=== PATIENT | female | born 1990 | race Caucasian/White ===

== ENCOUNTER → 2018-06-07 09:09 | Outpatient (CLI) | payer OTHER, MEDICAID, SELFPAY ==
--- NOTE | 2018-06-07 09:10 | DI.US.S_ITS ---
PROCEDURE: US OB <= 14 WEEKS FETUS INDICATIONS: viability and dates OUTSIDE/PRIOR DATING DATA: Last menstrual period (LMP): 04/04/18. LMP-based estimated date of delivery (NADIA): 01/09/19. First dating scan (date and location): 06/07/18. Estimated date of delivery (NADIA) from first dating scan: 01/13/19. TECHNIQUE: Real-time scanning was performed of the fetus and maternal pelvic organs, with image documentation. Endovaginal scanning was also performed to better visualize the fetus and maternal ovaries. COMPARISON: None. FINDINGS: Embryo: 2.0 cm crown-rump length correlates with a gestational age of 8 weeks 4 days, plus or -5 days. heart rate is 185 beats per minute. Measurement variability in dating: +/- 4 weeks by LMP, +/- 7 days by mean sac diameter (use before 6 weeks gestation if crown-rump length not able to be measured), +/- 5 days by crown-rump length (up to 8 weeks 6 days gestation), +/- 7 days by crown-rump length (up to 13 weeks 6 days gestation). Maternal organs: Ovaries normal considering gestational status. Limited images through the kidneys demonstrate no hydronephrosis. IMPRESSION: Single living intrauterine gestation with delivery date projected to be centered on 01/13/19, plus or -5 days. Followup anatomic survey at approximately 21 weeks gestation is recommended. Dictated by: Anibal Corbett M.D. on 06/07/2018 at 11:01 Approved by: Anibal Corbett M.D. on 06/07/2018 at 11:03
[2018-06-07 10:22] LABS: Appearance Urine UA CLEAR; Bilirubin Urine UA NEGATIVE (NEGATIVE); Color Urine UA YELLOW; Glucose Urine UA NEGATIVE (Normal); Ketones Urine UA NEGATIVE (NEGATIVE); Leukocyte Esterase Urine UA NEGATIVE (NEGATIVE); Nitrite Urine UA Negative (Negative); Occult Blood Urine UA NEGATIVE (Negative); Protein Urine UA NEGATIVE (Negative); Specific Gravity Urine UA <=1.005 (1.000-1.035); Urobilinogen Urine UA 0.2 E.U./dL (0.2)
[2018-06-07 10:29] LABS: Add Manual Diff / Slide Review NO; Basophils Percent Auto 0.6 % (0-2); Eosinophils Percent Auto 9.3 % (2-4); Hematocrit 38.9 % (36-46); Hemoglobin 13.3 g/dL (12.0-16.0); Lymphocytes Percent Auto 22.9 % (25-40); Mean Corpuscular HGB Conc 34.1 % (30-36); Mean Corpuscular Hemoglobin 29.6 PG (26-34); Mean Corpuscular Volume 86.7 fL (80-100); Monocytes Percent Auto 8.5 % (3-14); Neutrophils Absolute Auto 4400 /uL (3000-5900); Neutrophils Percent Auto 58.7 % (50-75); Platelet Count 304 X10^3/uL (150-400); Red Blood Cell Count 4.49 X10^6/uL (4.0-5.2); White Blood Cell Count 7.5 X10^3/uL (4.5-11.0)
[2018-06-07 12:51] LABS: Hepatitis B Surface Antigen NEGATIVE s/c (NEGATIVE); Rubella Antibody IgG 15.4 IU/mL (>15)
[2018-06-07 13:32] LABS: HIV 1 and 2 Antibody NEGATIVE (NEGATIVE); Hep C Virus Ab w/Reflex Quant NEGATIVE s/c (NEGATIVE)
[2018-06-08 15:06] LABS: HSV 2 IGG AB < 0.90 index (< 0.90)
[2018-06-10 13:15] LABS: Rapid Plasma Reagin NON-REACTIVE
== END ==
PROVIDERS: PCP Family Medicine; Visit Provider Family Medicine
DX: Z34.81 Encounter for supervision of other normal pregnancy, first trimester (principal); Z3A.01 Less than 8 weeks gestation of pregnancy
CPT/HCPCS: 36415; 76801; 76817; 80055; 81003; 86695; 86696; 86703; 86787; 86803; 86850; 86900; 86901; 87086

== ENCOUNTER → 2018-08-03 16:09 | Outpatient (CLI) | payer OTHER, MEDICAID, SELFPAY ==
[2018-08-12 14:25] LABS: AFP, Serum 43.3 ng/mL; Calc Gestational Age 17.3; Cigarette Smoker N; Donated Egg NOT GIVEN; Donor Egg Age NOT GIVEN; Estriol, Free 0.92 ng/mL; Inhibin A, Dimeric 179 pg/mL; Maternal Weight 139 lbs; Number of Fetuses 1; Previous Pregnancy Down Syndro NOT GIVEN; hCG, MoM 1.23; hCG, Serum 34.5 IU/mL
== END ==
PROVIDERS: PCP Family Medicine; Visit Provider Family Medicine
DX: Z3A.17 17 weeks gestation of pregnancy (principal)
CPT/HCPCS: 36415; 82105; 82677; 84702; 86336

== ENCOUNTER → 2018-08-27 13:44 | Outpatient (CLI) | payer OTHER, MEDICAID, SELFPAY ==
--- NOTE | 2018-08-27 13:45 | DI.US.S_ITS ---
PROCEDURE: US OB >= 14 WEEKS FETUS INDICATIONS: anatomy screening OUTSIDE/PRIOR DATING DATA: Last menstrual period (LMP): 04/04/18. LMP-based estimated date of delivery (NADIA): 01/09/19. First dating scan (date and location): 06/07/18. Estimated date of delivery (NADIA) from first dating scan: 01/13/19.. TECHNIQUE: Real-time scanning was performed of the fetus, with image documentation and biometric measurements. Endovaginal scanning: No COMPARISON: [facility], OB <= 14 WEEKS FETUS, 06/07/2018, 9:40. FINDINGS: General: A single living intrauterine gestation is present. Presentation: Breech. Placenta: Placental position is anterior, without previa. Amniotic fluid index: 13.4 cm, normal range is 5-24 cm. heart rate: 153 beats per minute. Maternal cervical canal: 5.4 cm long. Normal lower limit is 2.5 cm. biometrics: Biparietal diameter: 20 weeks 3 days Head circumference: 20 weeks 2 days Abdominal circumference: 20 weeks 5 days Femur length: 20 weeks 1 Estimated gestational age from initial scan: 20 weeks 1 day Composite gestational age from present scan: 20 weeks 3 days Estimated weight and percentile: 52 g, 61st percentile Measurement variability for biometric dating: +/- 7 days from 14 weeks to 15 weeks 6 days gestation, +/- 10 days from 16 weeks to 21 weeks 6 days gestation, +/- 2 weeks from 22 weeks to 27 weeks 6 days gestation, +/- 3 weeks for 28 weeks gestation or later. weight reference: 4500 g or EFW >90/95% is considered macrosomia or large for gestational age. EFW <10% is small for gestational age. EFW 5% or less is considered intra-uterine growth restriction. Anatomic survey: Neuro: Ventricles are non-dilated at less than 10 mm. Cisterna magna is normal at 3-11 mm. Cerebellum is normal in size and morphology. Nuchal skin fold: Normal at less than 6 mm between 14-21 weeks gestational age. Face: Nose and lips, facial profile are normal. Spine: No evidence for spina bifida. Heart: 4-chambered heart is present, with normal ventricular outflow tracts. Left ventricular intracardiac focus. Diaphragm: Diaphragm is intact. Stomach: Left-sided stomach is present. Kidneys: No hydronephrosis. Normal is less than 5 mm in 2nd trimester, less than 7 mm in 3rd trimester. Cord: 3-vessel cord has orthotopic insertion. Bladder: Normal in size. Extremities: All 4 extremities identified. IMPRESSION: 1. Single living IUP be demonstrated an interval growth is normal. 2. Echogenic intracardiac focus: 1.4-1.8 fold likelihood of Down syndrome. If isolated finding, consider aneuploidy screening with cell-free DNA. If aneuploidy screen is negative, no further evaluation needed. Dictated by: Shon LLANES Interpreted: Jovany Vance MD on 08/27/2018 at 15:01 Approved by: Jovany Vance M.D. on 08/27/2018 at 16:37
== END ==
PROVIDERS: PCP Family Medicine; Visit Provider Family Medicine
DX: Z3A.20 20 weeks gestation of pregnancy (principal)
CPT/HCPCS: 76811

== ENCOUNTER → 2018-10-05 14:24 | Outpatient (CLI) | payer OTHER, MEDICAID, SELFPAY ==
[2018-10-05 16:19] LABS: Hematocrit 38.1 % (36-46); Hemoglobin 12.8 g/dL (12.0-16.0)
[2018-10-05 16:37] LABS: GTT (PREG) 1 Hour PP 50gm Dose 120 mg/dL (76-139)
[2018-10-05 16:51] LABS: Alanine Aminotransferase 29 IU/L (9-52); Albumin 4.1 g/dL (3.5-5.0); Albumin Globulin Ratio 1.4 (1.0-2.8); Alkaline Phosphatase 50 U/L (38-126); Aspartate Aminotransferase 19 IU/L (14-36); Bilirubin Total 0.2 mg/dL (0.2-1.3); Blood Urea Nitrogen 10 mg/dL (7-17); Calcium 9.6 mg/dL (8.4-10.2); Carbon Dioxide 23 mmol/L (22-32); Chloride 102 mmol/L (98-107); Estimated Glomerular Filt Rate > 60.0 mL/min (>60); Globulin 2.9 g/dL (1.7-4.1); Glucose 121 mg/dL (70-100); HEMOLYSIS < 15 (0-50); Potassium 3.8 mmol/L (3.4-5.1); Sodium 135 mmol/L (137-145)
== END ==
PROVIDERS: PCP Family Medicine; Visit Provider Family Medicine
DX: Z3A.26 26 weeks gestation of pregnancy (principal); L29.9 Pruritus, unspecified; O99.719 Diseases of the skin and subcutaneous tissue complicating pregnancy, unspecified trimester
CPT/HCPCS: 36415; 80053; 82239; 82950; 85014; 85018

== ENCOUNTER 2018-10-30 15:20 | Outpatient (CLI) | payer OTHER, MEDICAID, SELFPAY ==
[2018-10-30 16:01] LABS: Appearance Urine UA CLOUDY; Bilirubin Urine UA NEGATIVE (NEGATIVE); Color Urine UA YELLOW; Glucose Urine UA NEGATIVE (Negative); Ketones Urine UA NEGATIVE (NEGATIVE); Leukocyte Esterase Urine UA 1+ (NEGATIVE); Nitrite Urine UA NEGATIVE (Negative); Occult Blood Urine UA NEGATIVE (Negative); Protein Urine UA NEGATIVE (Negative); RBC Urine None Seen (0-5/HPF); Specific Gravity Urine UA 1.015 (1.000-1.035); Urobilinogen Urine UA 0.2 E.U./dL (0.2); pH Urine UA 6.5 (4.5-8.0)
[2018-10-30 16:18] LABS: Bacteria Urine Many (>30); Culture Indicated Urine Cult Not Indicated; Squamous Epithelial Cell Urine >30 /HPF; WBC Urine 5-10/HPF (0-5/HPF)
--- NOTE | 2018-10-30 18:41 | P.TNLD_ITS ---
Visit Information Visit Information Date of evaluation: 10/30/18 Primary OB Provider: Lucía Patton On-call OB Provider: Rosalie Fleming Reason for Evaluation: Yes non-stress test Vital Signs Vital Signs: BP 120/90, T 36.0, P 114 PFSH Social History Smoking Status: Former smoker Review of Systems Review of Systems C/O too frequent felisa banda, no leakage, lower abdominal pain All systems reviewed & are unremarkable except as noted in HPI and below Objective Labs Labs: Laboratory Results - last 24 hr 10/30/18 15:49 Urine Color Yellow Urine Appearance Cloudy Urine pH 6.5 Ur Specific [place] 1.015 Urine Protein Negative Urine Glucose (UA) Negative Urine Ketones Negative Urine Occult Blood Negative Urine Nitrate Negative Urine Bilirubin Negative Urine Urobilinogen 0.2 Ur Leukocyte Esterase 1+ H Urine RBC None seen Urine WBC 5-10/hpf H Ur Squamous Epith Cells >30 /hpf H Urine Bacteria Many (>30) H Ur Culture Indicated? Cult not indicated Evaluation Evaluation Baseline heart rate: 140 Variability: Moderate (11-25) monitor accelerations: Present monitor decelerations: Absent Contraction Frequency (minutes): 0 Laboratory results: Laboratory Tests 10/30/18 15:49 Urine Color Yellow Urine Appearance Cloudy Urine pH 6.5 Ur Specific [place] 1.015 Urine Protein Negative Urine Glucose (UA) Negative Urine Ketones Negative Urine Occult Blood Negative Urine Nitrate Negative Urine Bilirubin Negative Urine Urobilinogen 0.2 Ur Leukocyte Esterase 1+ H Urine RBC None seen Urine WBC 5-10/hpf H Ur Squamous Epith Cells >30 /hpf H Urine Bacteria Many (>30) H Ur Culture Indicated? Cult not indicated Diagnosis, Plan/Disposition Final Diagnosis (1) Premature uterine contractions in third trimester, antepartum: Current Visit: No Status: Acute Plan/Disposition Plan: Reassurance no contractions, round ligament pain OB Disposition: home
--- NOTE | 2018-10-31 09:06 | PM.OBTRLD ---
Visit Information Visit Information Date of evaluation: 10/30/18 Primary OB Provider: Elena Abbott On-call OB Provider: Rosalie Fleming Reason for Evaluation: Yes rule out labor Vital Signs Vital Signs: Blood pressure 120/90, pulse 114, temperature 36? PFSH Social History Smoking Status: Former smoker Review of Systems Review of Systems Patient complains of achy pain in her back and leg. No leakage of fluid. Good movement. No signs or symptoms of preeclampsia. Objective Labs Labs: Laboratory Results - last 24 hr 10/30/18 15:49 Urine Color Yellow Urine Appearance Cloudy Urine pH 6.5 Ur Specific [place] 1.015 Urine Protein Negative Urine Glucose (UA) Negative Urine Ketones Negative Urine Occult Blood Negative Urine Nitrate Negative Urine Bilirubin Negative Urine Urobilinogen 0.2 Ur Leukocyte Esterase 1+ H Urine RBC None seen Urine WBC 5-10/hpf H Ur Squamous Epith Cells >30 /hpf H Urine Bacteria Many (>30) H Ur Culture Indicated? Cult not indicated Evaluation Evaluation Baseline heart rate: 145 Variability: Moderate (11-25) monitor accelerations: Present monitor decelerations: Absent Contraction Frequency (minutes): 0 Category of Tracing: I Laboratory results: Laboratory Tests 10/30/18 15:49 Urine Color Yellow Urine Appearance Cloudy Urine pH 6.5 Ur Specific [place] 1.015 Urine Protein Negative Urine Glucose (UA) Negative Urine Ketones Negative Urine Occult Blood Negative Urine Nitrate Negative Urine Bilirubin Negative Urine Urobilinogen 0.2 Ur Leukocyte Esterase 1+ H Urine RBC None seen Urine WBC 5-10/hpf H Ur Squamous Epith Cells >30 /hpf H Urine Bacteria Many (>30) H Ur Culture Indicated? Cult not indicated Diagnosis, Plan/Disposition Final Diagnosis (1) Premature uterine contractions in third trimester, antepartum: Current Visit: No Status: Acute
== END 2018-10-30 16:37 | disposition home or self-care (01) ==
LOC: OB 11-01 10:50
PROVIDERS: Family Provider Family Medicine; PCP Family Medicine; Visit Provider Specialist
DX: O47.03 False labor before 37 completed weeks of gestation, third trimester (principal); Z3A.29 29 weeks gestation of pregnancy
CPT/HCPCS: 59025; 81001; G0378; G0379

== ENCOUNTER → 2018-12-14 15:14 | Outpatient (CLI) | payer OTHER, MEDICAID, SELFPAY ==
[2018-12-15 16:33] LABS: Strep Grp B PCR NEG for Grp B Strep
== END ==
PROVIDERS: Family Provider Family Medicine; PCP Family Medicine; Visit Provider Family Medicine
DX: Z34.83 Encounter for supervision of other normal pregnancy, third trimester (principal); Z3A.36 36 weeks gestation of pregnancy
CPT/HCPCS: 87653

== ENCOUNTER 2019-01-13 18:09 | Inpatient (IN) | payer OTHER, MEDICAID, SELFPAY ==
[2019-01-13] MEDS: DINOPROSTONE VAG (CERVIDIL) 10 MG VAG (20:22)
[2019-01-14 02:33] LABS: Add Manual Diff / Slide Review NO; Basophils Absolute Auto 100 /uL (0-100); Basophils Percent Auto 0.8 % (0-2); Eosinophils Absolute Auto 600 /uL (0-450); Hematocrit 38.1 % (36-46); Hemoglobin 12.9 g/dL (12.0-16.0); Lymphocytes Absolute Auto 2100 /uL (1100-4500); Lymphocytes Percent Auto 21.7 % (25-40); Mean Corpuscular HGB Conc 33.9 % (30-36); Mean Corpuscular Volume 85.6 fL (80-100); Monocytes Absolute Auto 800 /uL (0-900); Monocytes Percent Auto 8.1 % (3-14); Neutrophils Absolute Auto 6200 /uL (1500-7000); Neutrophils Percent Auto 63.4 % (50-75); Platelet Count 267 X10^3/uL (150-400); Red Blood Cell Count 4.45 X10^6/uL (4.0-5.2); Red Cell Distribution Width 13.2 % (11.6-14.8); White Blood Cell Count 9.7 X10^3/uL (4.5-11.0)
[2019-01-14 03:07] VITALS: BP 136/90
--- NOTE | 2019-01-14 04:33 | PM.OBPRVD ---
Events: Labor Induction (cervadil) Delivery date: 01/14/19 Intrapartal events: Precipitous Labor < 3 hours Cervical ripening method: per Cervidil protocol Delivery monitor: external FHT and external uterine Route of delivery: L&D Laceration Description: Perineal - 2nd Degree Delivery repair: chromic (3-0) Estimated blood loss (mL): 150 Anesthesia type: Local (1% lidocaine 14 cc) Narrative: Patient was admitted for postdates induction. She received a Cervidil for induction. She had a precipitous delivery in which the emergency room doctor, Dr. Wilhelm was present. The female infant had been placed on the maternal abdomen and after cord stopped pulsating the cord was clamped and cut. The placenta delivered spontaneously, intact. I was called to repair the second-degree perineal laceration which was repaired in the usual 2 layer fashion with 3 0 chromic suture. Patient had no cervical or vaginal tears. She did have a first-degree right labial tear near the clitoris which the patient declined to be repaired. Estimated blood loss by nursing staff was 150 cc. Both and mother doing well. [place] Baby 1: Infant gender: Female Presentation: vertex Placenta delivery description: Spontaneous cord vessel description: 3 Vessels score (1 min): 8 score (5 min): 9 Plan for aftercare: Routine post vaginal delivery
[2019-01-14] MEDS: DERMOPLAST SPRAY 20% 60 ML 1 SPRAY TOP (06:09)
[2019-01-14] MEDS: IBUPROFEN 600 MG TABLET PO ×2 (06:09→17:19)
--- NOTE | 2019-01-14 08:23 | P.HPOB_ITS ---
OB HPI Date/Time Date of admission: 01/14/19 Date Patient Seen: 01/14/19 Time Patient Seen: 07:45 History of Present Condition Chief complaint: eval of labor : 2 Para: 2 Estimated Date of Delivery: 01/09/19 Estimated Gestational Age (weeks): 40w 5d Narrative: Lara Patel is a 28 year old G2-now-P2 s/p precipitous spontaneous vaginal delivery at 3:41 this morning. Patient came the center last night for a scheduled Cervidil induction for post dates. Cervidil fell out at approximately 1:00 a.m.. Spontaneous rupture of membranes occurred 2:00 a.m.. At 3:25 a.m. patient was requesting an epidural and found to be 5 cm. delivered at 3:41 a.m. by the RN. Placenta delivered by Dr. Wilhelm from the ER. Dr. Fleming was called and repaired a second degree perineal laceration. was vigorous at delivery and did not require resuscitation. Indications Indication for induction OB: post dates History of Present care: good care, initiated at week # (9), number of visits (13) and pounds weight gain (20) Dating criteria: LMP confirmed by 1st trimester US Ultrasounds: abnormal US findings (Echogenic intracardiac focus, otherwise normal anatomy) Abnormal ultrasound findings: Isolated echogenic intracardiac focus, normal quad and normal anatomy. MFM consult, repeat Us with EIF, patient and declined further testing. Obstetrical complications: none Medical complications: immunologic (Allergies, asthma and severe eczema) Preadmission Labs Blood type: A (+) positive -: Antibody screen: negative, GBS status: negative, HBsAG: negative, HIV: negative, HSV 1: positive, HSV 2: negative and RPR/VDLR: negative -: Rubella: immune and Varicella: immune HCT: 38.9 HCAB: negative Quad screen: Normal 1 hr GTT: 120 Prior (ies) History: at 39w5d 05/2017, induction for pre-eclampsia, 7 lbs 12 oz male Evaluation Evaluation Laboratory results: Laboratory Tests 01/14/19 01/14/19 02:24 02:24 WBC 9.7 RBC 4.45 Hgb 12.9 Hct 38.1 MCV 85.6 MCH 29.0 MCHC 33.9 RDW 13.2 Plt Count 267 Neut % (Auto) 63.4 Lymph % (Auto) 21.7 L [place] % (Auto) 8.1 Eos % (Auto) 6.0 H Baso % (Auto) 0.8 Neut # (Auto) 6200 Lymph # (Auto) 2100 Evans # (Auto) 800 Eos # (Auto) 600 H Baso # (Auto) 100 Blood Type A Positive Antibody Screen Negative [facility] Medical History Asthma (Chronic) Pre-eclampsia (Resolved) (spontaneous vaginal delivery) (Resolved) Surgical History S/P tympanostomy tube placement (Resolved) Social History marital status: number of children: 1 household members: family lives independently: Yes 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) Smoking Status: Former smoker alcohol intake: former substance use type: does not use Social History marital status: number of children: 1 household members: family lives independently: Yes 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) Smoking Status: Former smoker alcohol intake: former substance use type: does not use Meds Home Medications Medication Instructions Recorded Confirmed Type albuterol sulfate HFA 90 2 puff INHALATION Q4HP PRN #8.5 12/15/18 01/13/19 Rx mcg/actuation aerosol inhaler gram hydrocortisone 1 unit TOPICAL PRN PRN 01/13/19 01/13/19 History omeprazole 20 mg PO DAILY 01/13/19 01/13/19 History Allergies Allergy/AdvReac Type Severity Reaction Status Date / Time No Known Drug Allergies Allergy Verified 01/13/19 20:03 Review of Systems Constitutional Constitutional: Denies fever(s) and Denies headache(s) ENT Ears, Nose, Mouth, and Throat: No headache(s) and Yes nasal congestion Cardiovascular Cardiovascular: Denies chest pain Respiratory Respiratory: Denies cough Gastrointestinal Gastrointestinal: Denies abdominal pain, Denies nausea and Denies vomiting Neurologic Neurologic: Denies headache(s) Exam Vital Signs (past 8 hours): - 01/14/19 03:07 Blood Pressure 136/90 Temperature 36.4? blood pressure 120/87 heart rate 90 Narrative Exam Narrative: General: Awake and alert, no acute distress. HEENT: NCAT, EOMI, moist oral mucosa CV: Regular rate and rhythm, no murmurs, rubs or gallops Lungs: CTAB, no wheezes, rales, or rhonchi Abdomen: Soft, nontender; bowel tones active; uterus firm 1 cm below umbilicus Extremities: Warm, no edema, 2+ pedal pulses bilaterally Objective Labs Result Diagrams: 01/14/19 02:24 Labs: Laboratory Results - last 24 hr 01/14/19 01/14/19 02:24 02:24 WBC 9.7 RBC 4.45 Hgb 12.9 Hct 38.1 MCV 85.6 MCH 29.0 MCHC 33.9 RDW 13.2 Plt Count 267 Neut % (Auto) 63.4 Lymph % (Auto) 21.7 L [place] % (Auto) 8.1 Eos % (Auto) 6.0 H Baso % (Auto) 0.8 Neut # (Auto) 6200 Lymph # (Auto) 2100 [place] # (Auto) 800 Eos # (Auto) 600 H Baso # (Auto) 100 Blood Type A Positive Antibody Screen Negative Assessment and Plan Assessment and Plan Assessment and Plan narrative: 28 year old s/p precipitous vaginal delivery early this morning. and mother are both doing well. Routine care.
[2019-01-15] MEDS: CALCIUM CARBONATE 500 MG TAB 1000 MG PO (00:15)
--- NOTE | 2019-01-15 09:18 | PM.OBDS.1 ---
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 Patient was brought in for postdates induction and received Cervidil. She progressed rapidly after spontaneous rupture of membranes. Infant was delivered by the center RN. Placenta delivered by the ER doctor in house. Dr. Fleming was called and came in for a perineal repair. Patient and infant did well immediately after delivery. course uncomplicated. Bleeding is moderate. Pain well controlled with ibuprofen. is going very well. No concerns from patient or . Peripartum Data Infant Delivery Method: Natural Vaginal Laceration description: Perineal - 2nd Degree complications: none 1: Gender: Female Disposition of : home Discharge Diagnosis (1) 40 weeks gestation of : Status: Acute (2) Spontaneous vaginal delivery: Status: Acute Status at Discharge Cognitive/behavioral status at discharge: at baseline, oriented Functional status at discharge: independent ambulation Overall status at discharge: patient is back to baseline Time Spent with Patient Total time spent providing and/or coordinating discharge services: Less than 30 minutes Objective Labs Result Diagrams: 01/14/19 02:24 Exam Vital Signs (past 8 hours): Temperature 98.8? blood pressure 129/85 heart rate 85 respirations 16 Narrative Exam Narrative: General: Awake and alert, no acute distress. HEENT: NCAT, EOMI, moist oral mucosa CV: Regular rate and rhythm, no murmurs, rubs or gallops Lungs: CTAB, no wheezes, rales, or rhonchi Abdomen: Soft, nontender; bowel tones active; uterus firm 2 cm below umbilicus Extremities: Warm, no edema, 2+ pedal pulses bilaterally Discharge Plan Discharge Plan Patient Disposition: Home Discharge comment: Call for fevers, severe pain or bleeding through more than a pad an hour. Discharge Med Rec/Prescriptions Prescriptions: New ibuprofen 600 mg Tablet 600 mg PO Q6HR PRN (Reason: Pain, Mild (1-3)) Qty: 30 RF: 0 Continued albuterol sulfate [Ventolin HFA] 90 mcg/actuation HFA aerosol inhaler 2 puff INHALATION Q4HP PRN (Reason: shortness of breath or wheezing) Qty: 8.5 RF: 6 hydrocortisone 1 unit cream 1 unit topical PRN PRN (Reason: Dry Skin) RF: 0 omeprazole 20 mg capsule 20 mg PO DAILY RF: 0 Follow up/Referrals: Lucía Patton DO [Primary Care Provider] - 02/25/19 11:00 am Provider Discharge Instructions Diet: Diet as Tolerated Skin/Wound/Dressing Care Report to your healthcare provider any signs of infection, such as:: chills, fever, night sweats, increased pain, unusual drainage and unusual redness Visit Report/Discharge Packet Visit Report Forms: Stroke Signs & Symptoms Discharge Data Primary Care Provider: Lucía Patton Attending Provider: Rosalie Fleming Admit Date/Time: 01/13/19 18:09
[2019-01-15 09:38] VITALS: BP 129/86; PULSE 85; RESP 16; TEMP 37.1
== END 2019-01-15 11:17 | disposition home or self-care (01) | DRG 560 ==
PROVIDERS: Admitting Provider Specialist; Family Provider Family Medicine; PCP Family Medicine; Visit Provider Specialist
DX: O48.0 Post-term pregnancy (principal); Z3A.40 40 weeks gestation of pregnancy; Z37.0 Single live birth
CPT/HCPCS: 59050; 59200; 59409; 85025; 86850; 86900; 86901; G0379

== ENCOUNTER → 2021-04-23 11:33 | Outpatient (CLI) | payer OTHER, MEDICAID, SELFPAY ==
--- NOTE | 2021-04-23 11:34 | DI.US.S_ITS ---
PROCEDURE: US OB <= 14 WEEKS FETUS INDICATIONS: DATING AND VIABILITY OUTSIDE/PRIOR DATING DATA: Last menstrual period (LMP): 02/22/2021 LMP-based estimated date of delivery (NADIA): 11/29/2021 First dating scan (date and location): 04/23/2021 Estimated date of delivery (NADIA) from first dating scan: 11/29/2021 TECHNIQUE: Real-time scanning was performed of the fetus and maternal pelvic organs, with image documentation. Endovaginal scanning was also performed to better visualize the fetus and maternal ovaries. COMPARISON: [facility], , OB <= 14 WEEKS FETUS, 06/07/2018, 9:40. FINDINGS: Embryo: Single intrauterine gestation is seen with fetus and yolk sac seen. heart rate is 180 beats per minute. [place]-rump length measures 2 cm. Estimated gestational age based on current study is 8 weeks, 4 days. Measurement variability in dating: +/- 4 weeks by LMP, +/- 7 days by mean sac diameter (use before 6 weeks gestation if crown-rump length not able to be measured), +/- 5 days by crown-rump length (up to 8 weeks 6 days gestation), +/- 7 days by crown-rump length (up to 13 weeks 6 days gestation). Maternal organs: Right ovary is visualized and is within normal limits. Possible corpus luteum in left ovary is seen measures 1.8 x 1.5 x 1.9 cm in size. Simple appearing para ovarian cyst is also noted in left adnexa measures 2.5 x 1.7 x 1.5 cm in size. Trace amount of anechoic fluid adjacent to left ovary is seen. Mildly heterogeneous myometrial echotexture is seen. IMPRESSION: 1. Single live intrauterine with fetus and yolk sac seen. heart rate is 180 beats per minute. Estimated gestational age is 8 weeks, 4 days. 2. Possible corpus luteum in left ovary as above. Suggestion of left para ovarian cyst as above. Dictated by: Jovany Vance M.D. on 04/23/2021 at 14:34 Approved by: oJvany Vance M.D. on 04/23/2021 at 14:37
== END ==
PROVIDERS: Family Provider Family Medicine; PCP Family Medicine; Referring Provider Family Medicine; Visit Provider Family Medicine
DX: Z36.87 Encounter for antenatal screening for uncertain dates (principal); Z3A.08 8 weeks gestation of pregnancy
CPT/HCPCS: 76801; 76817

== ENCOUNTER → 2021-05-16 11:38 | Outpatient (CLI) | payer OTHER, MEDICAID, SELFPAY ==
[2021-05-16 12:33] LABS: Add Manual Diff / Slide Review NO; Basophils Absolute Auto 0 /uL (0-100); Basophils Percent Auto 0.2 % (0-2); Eosinophils Absolute Auto 700 /uL (0-450); Eosinophils Percent Auto 8.9 % (2-4); Hematocrit 37.7 % (36-46); Hemoglobin 12.7 g/dL (12.0-16.0); Lymphocytes Absolute Auto 1500 /uL (1100-4500); Lymphocytes Percent Auto 18.5 % (25-40); Mean Corpuscular HGB Conc 33.8 % (30-36); Mean Corpuscular Hemoglobin 29.6 PG (26-34); Mean Corpuscular Volume 87.6 fL (80-100); Monocytes Absolute Auto 500 /uL (0-900); Monocytes Percent Auto 5.8 % (3-14); Neutrophils Absolute Auto 5600 /uL (1500-7000); Neutrophils Percent Auto 66.6 % (50-75); Platelet Count 274 X10^3/uL (150-400); Red Cell Distribution Width 12.9 % (11.6-14.8); White Blood Cell Count 8.4 X10^3/uL (4.5-11.0)
[2021-05-16 13:00] LABS: Appearance Urine UA SL CLOUDY; Bilirubin Urine UA NEGATIVE (NEGATIVE); Color Urine UA YELLOW; Glucose Urine UA NEGATIVE (Negative); Ketones Urine UA NEGATIVE (NEGATIVE); Leukocyte Esterase Urine UA NEGATIVE (NEGATIVE); Nitrite Urine UA NEGATIVE (Negative); Occult Blood Urine UA NEGATIVE (Negative); Protein Urine UA TRACE (Negative); Specific Gravity Urine UA 1.015 (1.000-1.035); Urobilinogen Urine UA 0.2 E.U./dL (0.2)
[2021-05-16 17:31] LABS: Hepatitis B Surface Antigen NEGATIVE s/c (NEGATIVE); Rubella Antibody IgG 10.2 IU/mL (>15)
[2021-05-16 17:47] LABS: HIV 1 & 2 Ab/Ag 4th Gen Combo NEGATIVE (NEGATIVE); Hep C Virus Ab w/Reflex Quant NEGATIVE s/c (NEGATIVE)
[2021-05-17 05:39] LABS: RPR Screen Non Reactive (Non Reactive)
[2021-05-17 12:22] LABS: Varicella IgG Antibody 572 index (Immune >165)
== END ==
PROVIDERS: Family Provider Family Medicine; PCP Family Medicine; Referring Provider Family Medicine; Visit Provider Family Medicine
DX: Z34.81 Encounter for supervision of other normal pregnancy, first trimester (principal)
CPT/HCPCS: 36415; 80055; 81003; 86787; 86803; 86850; 86900; 86901; 87086; 87389

== ENCOUNTER → 2021-07-12 10:55 | Outpatient (CLI) | payer OTHER, MEDICAID, SELFPAY ==
--- NOTE | 2021-07-12 10:56 | DI.US.S_ITS ---
PROCEDURE: OB >= 14 WEEKS FETUS INDICATIONS: ANATOMY OUTSIDE/PRIOR DATING DATA: Last menstrual period (LMP): 02/22/2021. LMP-based estimated date of delivery (NADIA): 11/29/2021. First dating scan (date and location): 04/23/2021. Estimated date of delivery (NADIA) from first dating scan: 11/29/2021. TECHNIQUE: Real-time scanning was performed of the fetus, with image documentation and biometric measurements. Endovaginal scanning: Not performed COMPARISON: [facility], OB >= 14 WEEKS FETUS, 08/27/2018, 14:02. FINDINGS: General: A single living intrauterine gestation is present. Presentation: Variable. Placenta: Placental position is anterior, without previa. Amniotic fluid index: 11 cm, normal range is 5-24 cm. heart rate: 160 beats per minute. Maternal cervical canal: 5.3 cm long. Normal lower limit is 2.5 cm. biometrics: Biparietal diameter: 4.5 cm, 19 weeks 4 days Head circumference: 17.3 cm, 19 weeks 6 days Abdominal circumference: 15.6 cm, 20 weeks 5 days Femur length: 3.1 cm, 19 weeks 4 days Estimated gestational age from initial scan: 20 weeks 0 days Composite gestational age from present scan: 20 weeks 0 days Estimated weight and percentile: 336 g, 50th percentile Measurement variability for biometric dating: +/- 7 days from 14 weeks to 15 weeks 6 days gestation, +/- 10 days from 16 weeks to 21 weeks 6 days gestation, +/- 2 weeks from 22 weeks to 27 weeks 6 days gestation, +/- 3 weeks for 28 weeks gestation or later. weight reference: 4500 g or EFW >90/95% is considered macrosomia or large for gestational age. EFW <10% is small for gestational age. EFW 5% or less is considered intra-uterine growth restriction. Anatomic survey: Neuro: Ventricles are non-dilated at less than 10 mm. Cisterna magna is normal at 3-11 mm. Cerebellum is normal in size and morphology. Nuchal skin fold: Normal at less than 6 mm between 14-21 weeks gestational age. Face: Nose and lips, facial profile are normal. Spine: No evidence for spina bifida. Heart: 4-chambered heart is present, with normal ventricular outflow tracts. Diaphragm: Diaphragm is intact. Stomach: Left-sided stomach is present. Possible debris. Kidneys: No hydronephrosis. Normal is less than 5 mm in 2nd trimester, less than 7 mm in 3rd trimester. Cord: 3-vessel cord has orthotopic insertion. Bladder: Normal in size. Extremities: All 4 extremities identified. IMPRESSION: 1. [place] living intrauterine at 20 weeks 0 days based on today's ultrasound. This is concordant with the prior ultrasound. There is expected interval growth. 2. Normal placenta and amniotic fluid. 3. Normal and complete anatomic survey. Dictated by: Hussein Harden M.D. on 07/12/2021 at 13:35 Approved by: Hussein Harden M.D. on 07/12/2021 at 13:58
[2021-07-17 00:05] LABS: AFP Value 47.1 ng/mL (.); Insulin Dep Diabetes No (.); OSBR Risk 1IN 10000 (.); Results Report (.); Test Results *Screen Negative* (.)
== END ==
PROVIDERS: Family Provider Family Medicine; PCP Family Medicine; Referring Provider Family Medicine; Visit Provider Family Medicine
DX: Z36.89 Encounter for other specified antenatal screening (principal); Z3A.20 20 weeks gestation of pregnancy
CPT/HCPCS: 36415; 76811; 82105

== ENCOUNTER → 2021-09-05 12:42 | Outpatient (CLI) | payer OTHER, MEDICAID, SELFPAY ==
[2021-09-05 14:49] LABS: Hematocrit 33.4 % (36-46); Hemoglobin 11.3 g/dL (12.0-16.0)
[2021-09-05 15:30] LABS: GTT (PREG) 1 Hour PP 50gm Dose 136 mg/dL (76-139)
== END ==
PROVIDERS: Family Provider Family Medicine; PCP Family Medicine; Referring Provider Family Medicine; Visit Provider Family Medicine
DX: Z3A.28 28 weeks gestation of pregnancy (principal)
CPT/HCPCS: 36415; 82950; 85014; 85018

== ENCOUNTER 2021-10-05 22:17 | Observation (INO) | payer OTHER, MEDICAID, SELFPAY ==
--- NOTE | 2021-10-05 | DI.US.S_ITS ---
PROCEDURE: US OB >= 14 WEEKS FETUS INDICATIONS: CONTRACTIONS. CERVICAL LENGTH, FLUID, AND POSITION CHECK. OUTSIDE/PRIOR DATING DATA: Last menstrual period (LMP): 02/22/21 LMP-based estimated date of delivery (NADIA): 11/29/21. First dating scan (date and location): 04/23/21. Estimated date of delivery (NADIA) from first dating scan: 11/29/21. The calculations are made using the 1st available NADIA of 11/29/21. TECHNIQUE: Real-time scanning was performed of the fetus, with image documentation and biometric measurements. Endovaginal scanning: Not needed COMPARISON: [facility], OB >= 14 WEEKS FETUS, 07/12/2021, 10:58. [facility], OB >= 14 WEEKS FETUS, 08/27/2018, 14:02. FINDINGS: General: A single living intrauterine gestation is present. Presentation: Vertex. Placenta: Placental position is anterior , without previa. Amniotic fluid index: 18.7 cm, normal range is 5-24 cm. heart rate: 143 beats per minute. Maternal cervical canal: 4.4 cm long. Normal lower limit is 2.5 cm. Anatomic survey: Stomach: Left-sided stomach is present. Kidneys: No hydronephrosis. Normal is less than 5 mm in 2nd trimester, less than 7 mm in 3rd trimester. Cord: 3-vessel cord has superior marginal insertion. IMPRESSION: Single living intrauterine gestation in vertex presentation with with normal amniotic fluid volume an with normal maternal cervical length. The cord appears marginal, at the superior placenta on this limited study. We strive to produce accurate, complete, and clear reports of imaging services. To assist us in improving patient care, this report was composed using standard report templates and voice recognition software. Therefore, it may contain abnormal punctuation, insertions and/or omissions. Occasional wrong-word or sound-alike substitutions may occur. Though we review the report and make efforts to correct it, we do recommend that the report be read carefully in proper context to recognize any text inaccuracies. Dictated by: Anibal Corbett M.D. on 10/06/2021 at 1:01 Approved by: Anibal Corbett M.D. on 10/06/2021 at 1:07
[2021-10-05 22:55] LABS: Appearance Urine UA CLEAR; Bilirubin Urine UA NEGATIVE (NEGATIVE); Color Urine UA YELLOW; Glucose Urine UA NEGATIVE (Negative); Ketones Urine UA NEGATIVE (NEGATIVE); Leukocyte Esterase Urine UA NEGATIVE (NEGATIVE); Nitrite Urine UA NEGATIVE (Negative); Occult Blood Urine UA NEGATIVE (Negative); Protein Urine UA NEGATIVE (Negative); Urobilinogen Urine UA 0.2 E.U./dL (0.2)
[2021-10-05 22:56] LABS: pH Urine UA 6.5 (4.5-8.0)
[2021-10-05 23:12] LABS: Bacteria Urine Few (2-10); Culture Indicated Urine Cult Not Indicated; RBC Urine None Seen (0-5/HPF); Squamous Epithelial Cell Urine 5-10 /HPF (0-5/HPF); WBC Urine None Seen (0-5/HPF)
[2021-10-05 23:20] LABS: COVID19 -Nasal RAPID Negative (Negative)
--- NOTE | 2021-10-06 00:44 | P.TNLD_ITS ---
Visit Information Visit Information Date of evaluation: 10/06/21 Primary OB Provider: Lucía Patton On-call OB Provider: Tamie Long Reason for Evaluation: Yes non-stress test Comments/Additional reasons for admission: Patient is a 31yo P2 @32 weeks presenting with symptomatic contractions q5 minutes for 2 hours. Reports good movement, no LOF or VB. No complications or risk factors for labor, no recent intercourse or abdominal trauma. 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 Vital Signs Vital Signs: 115/74, HR 112, afebrile [facility] Medical History Anxiety Asthma Depression Eczema Gastrointestinal distress History of fibromyalgia (~2018) Pre-eclampsia (~2016) Seasonal allergic rhinitis (spontaneous vaginal delivery) (~01/14/19) (spontaneous vaginal delivery) (~06/11/17) Surgical History S/P tympanostomy tube placement Family History Father Hypertension Mother Mental health problem Adopted Grandfather Family estrangement Grandmother No problems noted. Grandfather Aneurysm Grandmother Cancer CVA (cerebral vascular accident) Brother No problems noted. Sister No problems noted. 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 Smoking Status: Former smoker (Occasional/Social ) Tobacco: How many years used: 2 second hand exposure: No alcohol intake: former (pre- : daily <2 ) substance use type: does not use Review of Systems Constitutional Constitutional: Reports system reviewed and no additional complaints, except as documented Gastrointestinal Gastrointestinal: Reports as per HPI Genitourinary Genitourinary: Reports as per HPI Exam Const General: cooperative, healthy appearing and anxious GI Palpation: soft and No tender External Female Exam: normal external appearance Speculum Exam - Vagina: normal appearance of the vagina and normal vaginal discharge Speculum Exam - Cervix: closed Presentation: vertex Other: cervix c/l/h, posterior and firm. FFN collected but not sent based on cervical length over 4cm on TVUS. Objective Labs Labs: Laboratory Results - last 24 hr 10/05/21 10/05/21 22:30 22:30 Urine Color Yellow Urine Appearance Clear Urine pH 6.5 Ur Specific [place] 1.010 Urine Protein Negative Urine Glucose (UA) Negative Urine Ketones Negative Urine Occult Blood Negative Urine Nitrate Negative Urine Bilirubin Negative Urine Urobilinogen 0.2 Ur Leukocyte Esterase Negative Urine RBC None seen Urine WBC None seen Ur Squamous Epith Cells 5-10 /hpf H Urine Bacteria Few (2-10) H Ur Culture Indicated? Cult not indicated SARS-CoV-2 (PCR) Negative Evaluation Evaluation Baseline heart rate: 140 Variability: Average (6-10) monitor accelerations: Present Monitor Decelerations: Absent Category of Tracing: Reactive Status: Category l Cervical dilation (cm): 0 Cervical effacement (%): 0 station: -4 Comments: Contractions initially q5, then uterine irritability that then resolved. Diagnosis, Plan/Disposition Plan/Disposition Plan: Long, closed, posterior cervix with high vertex, and long cervix on TVUS. Patient declined nifedipine for symptom management. Precautions for labor and return discussed, patient encouraged to rest and hydrate as much as possible. OB Disposition: home
== END 2021-10-06 00:45 | disposition home or self-care (01) ==
PROVIDERS: Admitting Provider Obstetrics & Gynecology; Family Provider Family Medicine; PCP Family Medicine; Referring Provider Obstetrics & Gynecology; Visit Provider Obstetrics & Gynecology
DX: O47.03 False labor before 37 completed weeks of gestation, third trimester (principal); Z3A.32 32 weeks gestation of pregnancy; Z20.822 Contact with and (suspected) exposure to COVID-19
CPT/HCPCS: 59025; 59050; 76811; 76817; 81001; 87635; C9803; G0378; G0379

== ENCOUNTER → 2021-10-31 11:40 | Outpatient (CLI) | payer OTHER, MEDICAID, SELFPAY ==
[2021-11-01 09:42] LABS: Strep Grp B PCR NEG for Grp B Strep
== END ==
PROVIDERS: Family Provider Family Medicine; PCP Family Medicine; Visit Provider Family Medicine
DX: Z36.85 Encounter for antenatal screening for Streptococcus B (principal); Z3A.36 36 weeks gestation of pregnancy
CPT/HCPCS: 87653

== ENCOUNTER 2021-11-07 11:02 | Outpatient (CLI) | payer OTHER, MEDICAID, SELFPAY ==
--- NOTE | 2021-11-07 12:11 | PM.OBTRLD ---
Visit Information Visit Information Date of evaluation: 11/07/21 Primary OB Provider: Lucía Patton Reason for Evaluation: Yes non-stress test Comments/Additional reasons for admission: 31-year-old at 36 and 6 weeks gestation sent from the clinic due to tachycardia with Doppler. Baby has been very active this morning. She has had caffeine but not yet eaten. Denies leaking or bleeding though she has been having frequent nonpainful contractions. Vital Signs Vital Signs: Temperature 36.1? blood pressure 123/83 heart rate 116 PFSH Medical History Anxiety Asthma Depression Eczema Gastrointestinal distress History of fibromyalgia (~2018) Pre-eclampsia (~2016) Seasonal allergic rhinitis (spontaneous vaginal delivery) (~01/14/19) (spontaneous vaginal delivery) (~06/11/17) Surgical History S/P tympanostomy tube placement Family History Father Hypertension Mother Mental health problem Adopted Grandfather Family estrangement Grandmother No problems noted. Grandfather Aneurysm Grandmother Cancer CVA (cerebral vascular accident) Brother No problems noted. Sister No problems noted. 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 NST reactive with a baseline in the 150s. was very active on the monitor with excellent variability. She was destiny intermittently though not painful. Follow-up in clinic next week or sooner if needed. OB Disposition: home
== END 2021-11-07 12:15 | disposition home or self-care (01) ==
LOC: LABOR 11:40 → OB 11-10 10:47
PROVIDERS: Family Provider Family Medicine; PCP Family Medicine; Referring Provider Family Medicine; Visit Provider Family Medicine
DX: O36.8330 Maternal care for abnormalities of the fetal heart rate or rhythm, third trimester, not applicable or unspecified (principal); O47.03 False labor before 37 completed weeks of gestation, third trimester; Z3A.36 36 weeks gestation of pregnancy
CPT/HCPCS: 59025; G0378; G0379

== ENCOUNTER 2021-11-21 21:20 | Inpatient (IN) | payer OTHER, MEDICAID, SELFPAY ==
[2021-11-21 22:20] LABS: Add Manual Diff / Slide Review NO; Basophils Absolute Auto 100 /uL (0-100); Basophils Percent Auto 0.7 % (0-2); Eosinophils Absolute Auto 400 /uL (0-450); Eosinophils Percent Auto 4.3 % (2-4); Hematocrit 36.4 % (36-46); Hemoglobin 12.6 g/dL (12.0-16.0); Lymphocytes Absolute Auto 1700 /uL (1100-4500); Lymphocytes Percent Auto 19.6 % (25-40); Mean Corpuscular HGB Conc 34.6 % (30-36); Mean Corpuscular Hemoglobin 29.7 PG (26-34); Monocytes Absolute Auto 800 /uL (0-900); Monocytes Percent Auto 9.5 % (3-14); Neutrophils Absolute Auto 5800 /uL (1500-7000); Neutrophils Percent Auto 65.9 % (50-75); Platelet Count 211 X10^3/uL (150-400); Red Blood Cell Count 4.24 X10^6/uL (4.0-5.2); Red Cell Distribution Width 15.4 % (11.6-14.8); White Blood Cell Count 8.8 X10^3/uL (4.5-11.0)
[2021-11-21 22:34] LABS: COVID19 -Nasal RAPID Negative (Negative)
[2021-11-21] MEDS: miSOPROStoL 25 MCG TABLET VAG (23:22)
[2021-11-22] MEDS: miSOPROStoL 25 MCG TABLET VAG (03:54)
--- NOTE | 2021-11-22 06:19 | PM.OBHP.IH.1 ---
OB HPI Date/Time Date of admission: 11/21/21 Date Patient Seen: 11/22/21 Time Patient Seen: 06:49 History of Present Condition Chief complaint: observation of labor NADIA Calculator Estimated Delivery Date Method Current WG Current Estimate 11/29/21 LMP (Certain) 39w 0d Other Estimates 11/29/21 Ultrasound #1 39w 0d : 3 Para: 2 Narrative: 31-year-old at 39 weeks gestation here for elective induction due to history of precipitous delivery and distance from the hospital. She presented last night for Cytotec and received 2 doses overnight. This morning she feels some contractions but nothing painful yet. No leaking or bleeding. Good movement. She has taken sertraline throughout her without complications. She also has a history of asthma and used Advair and albuterol throughout . She had a mild course of COVID-19 in the third trimester as well. care: good care, initiated at week # (10), number of visits (12) and pounds weight gain (30) Dating criteria OB: LMP confirmed by 1st trimester US Ultrasounds: normal mid trimester US Obstetrical complications: none Medical complications OB: respiratory (Asthma and allergies) Indications Indication for induction OB: history of rapid labor Preadmission Labs Last OB Lab Results: Blood Type A Positive 11/21/21 21:40 11/21/21 Antibody Screen Negative 11/21/21 21:40 11/21/21 Hematocrit 36.4 % (36-46) 11/21/21 21:40 11/21/21 Hemoglobin 12.6 g/dL (12.0-16.0) 11/21/21 21:40 11/21/21 Hepatitis B Surface Antigen Negative s/c (NEGATIVE) 05/16/21 11:52 05/16/21 Hepatitis C Antibody Negative s/c (NEGATIVE) 05/16/21 11:52 05/16/21 Rubella Antibody 10.2 IU/mL (>15) L 05/16/21 11:52 05/16/21 Varicella-Zoster IgG Antibody 572 index (Immune >165) 05/16/21 11:52 05/16/21 Glucose 1 Hour 136 mg/dL (76-139) 09/05/21 12:47 09/05/21 Group B Streptococcus (PCR) Neg for grp b strep 10/31/21 11:40 10/31/21 -: Urine: negative -: PAP smear: Normal Genetic Screens: Quad screen: Normal External Labs -: Urine: negative Prior (ies) Past Pregnancies Del. Date GA/Weeks Labor Lgth Wt Sex Route Outcome Anesthesia Place Delv Breastfeed Preg Comp Name 06/11/17 39.5 16 7 lb 12 oz Male vaginal live - full term epidural [facility] Dr Roe 6 months pre-eclampsia Rosa Maria 01/14/19 40.5 1 7 lb 12.2 oz Female vaginal live - full term none [facility] 12 months induced hyper- post-dates induction Alix Delivery Date: 06/11/17 Last Updated by: Maritza Matthew R.N. *Failed Induction initially at 38 weeks. *[facility] *Tough period PP : Jaundiced, Nursing issues, Lip-tied, back to work at 7 wga. Delivery Date: 01/14/19 Last Updated by: Maritza Matthew R.N. *Induction. *In Labor for 20 mins! *2nd Tear with Repair. *Alix has a lip tie. Evaluation Evaluation Baseline heart rate: 120 Variability: Moderate (11-25) monitor accelerations: Present Monitor Decelerations: Absent Uterine Contraction Intensity: Mild Category of Tracing: Reactive Dilation (cm): 1 Effacement (%): 50 Dilation: 1-2 cm Effacement: 40-50% station: -3 Position of cervix: anterior Consistency: soft Li score: 6 PFSH Medical History Anxiety Asthma Depression Eczema Gastrointestinal distress History of fibromyalgia (~2018) Pre-eclampsia (~2017) Seasonal allergic rhinitis (spontaneous vaginal delivery) (~01/14/19) (spontaneous vaginal delivery) (~06/11/17) Surgical History S/P tympanostomy tube placement Family History Father Hypertension Mother Mental health problem Adopted Grandfather Family estrangement Grandmother No problems noted. Grandfather Aneurysm Grandmother Cancer CVA (cerebral vascular accident) Brother No problems noted. Sister No problems noted. 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 Smoking Status: Former smoker (Occasional/Social ) Tobacco: How many years used: 2 second hand exposure: No alcohol intake: former (pre- : daily <2 ) substance use type: does not use Meds Home Medications and Allergies Home Medications Medication Instructions Recorded Confirmed Type doxylamine succinate 25 mg tablet 25 mg PO BEDTIME PRN 04/24/21 10/31/21 History (Unisom (doxylamine)) prenat.vits,tobias,[id number]-[id number] 1 tab PO DAILY 04/24/21 10/31/21 History pyridoxine (vitamin B6) 50 mg 25 mg PO ONCE 04/24/21 10/31/21 History tablet ProAir HFA 90 mcg/actuation See Rx Instructions .ROUTE 05/16/21 10/31/21 Rx aerosol inhaler (albuterol sulfate) .COMPLEX #9 unspecified NS sertraline 50 mg tablet (Zoloft) 50 mg PO DAILY #90 tab 07/04/21 10/31/21 Rx fluticasone propionate 110 1 puff INHALATION BID #12 g 08/01/21 10/31/21 Rx mcg/actuation HFA aerosol inhaler (Flovent HFA) nifedipine 10 mg capsule 10 mg PO .Q2 PRN #30 cap 10/18/21 10/31/21 Rx Allergies Allergy/AdvReac Type Severity Reaction Status Date / Time No Known Drug Allergies Allergy Verified 05/09/21 15:07 OB Exam Narrative Exam Narrative: T 36.1 BP 126/77 P 90 HENMT Head: normal to inspection Mouth: oral mucosae normal Eyes General: appearance normal, both eyes and all related structures Resp Effort & Inspection: normal respiratory effort Auscultation: clear to auscultation bilaterally Cardio Rate: regular rate Rhythm: regular rhythm Heart Sounds: S1 normal and S2 normal Extremities Lower extremity: Yes normal to inspection; No edema Objective Labs Result Diagrams: 11/21/21 21:40 Labs: Laboratory Results - last 24 hr 11/21/21 11/21/21 11/21/21 21:40 21:40 21:45 WBC 8.8 RBC 4.24 Hgb 12.6 Hct 36.4 MCV 86.0 MCH 29.7 MCHC 34.6 RDW 15.4 H Plt Count 211 Neut % (Auto) 65.9 Lymph % (Auto) 19.6 L [place] % (Auto) 9.5 Eos % (Auto) 4.3 H Baso % (Auto) 0.7 Neut # (Auto) 5800 Lymph # (Auto) 1700 [place] # (Auto) 800 Eos # (Auto) 400 Baso # (Auto) 100 SARS-CoV-2 (PCR) Negative Blood Type A Positive Antibody Screen Negative Assessment and Plan Assessment and Plan Assessment and Plan narrative: 31-year-old at 39 weeks gestation here for elective induction due to h/o precipitous delivery. S/p two doses of Cytotec overnight. Li score of 6 this morning. Will get her back on the monitor and if not destiny too frequently, will give 1 more dose of Cytotec. If destiny too frequently will start Pitocin. GBS negative, COVID negative. Anticipate spontaneous vaginal delivery.
[2021-11-22] MEDS: LACTATED RINGERS 1,000 ML 100 ML IV ×2 (13:33→16:59)
[2021-11-22] MEDS: OXYTOCIN PREMIX 30 UNIT/500 ML PLAST..BAG IV (13:40)
--- NOTE | 2021-11-22 16:39 | PM.OBPNLAB ---
Date/Time Date Patient Seen: 11/22/21 Time Patient Seen: 15:30 Pain Control Comments: SROM when up to the bathroom with clear fluid, requesting epidural Pelvic Exam Dilation (cm): 3 Effacement (%): 75 station: -3 Amniotic membrane status: Ruptured (clear fluid) Contractions Pitocin rate (mU/min): 6 Contraction frequency (min): 2 Contraction intensity: Mild Status status: Category l Heart Rate Baseline: 135 Monitor Accelerations: Present Monitor Decelerations: Absent Monitor Variability: Moderate Assessment and Plan Assessment: active labor Plan: continuous present management Comments: 31 year old at 39 weeks gestation with SROM for clear fluid, now entering active labor. RN concerned for uncertain presentation, vertex on exam and confirmed with bedside US. Epidural now, anticipate .
--- NOTE | 2021-11-22 17:13 | PM.OBPNLAB ---
Date/Time Date Patient Seen: 11/22/21 Time Patient Seen: 17:13 Pain Control Pain control: epidural Pelvic Exam Dilation (cm): 7 Effacement (%): 100 station: -3 Amniotic membrane status: Ruptured (clear fluid) Contractions Pitocin rate (mU/min): 6 Contraction frequency (min): 4 Status status: Category l Heart Rate Baseline: 140 Monitor Accelerations: Present Monitor Decelerations: Early Monitor Variability: Moderate Assessment and Plan Assessment: active labor Plan: continuous present management
--- NOTE | 2021-11-22 18:30 | PM.OBPRVD ---
Labor & Delivery Delivery date: 11/22/21 Cervical ripening method: per misoprostal protocol Induction method: per pitocin protocol Delivery monitor: external FHT Route of delivery: L&D Laceration Description: Perineal - 2nd Degree Delivery repair: chromic Estimated blood loss (mL): 250 Anesthesia Type: Epidural Narrative: STAGE I: Labor Patient is a 31-year-old at 39 weeks gestation who presented for elective induction due to history of precipitous delivery and distance from hospital. She received 2 doses of Cytotec then Pitocin per protocol. Spontaneous rupture of membranes occurred at 3:05 p.m. and active labor began shortly thereafter. She went on to receive an epidural with excellent pain control and was complete at 5:35 p.m.. heart tones were category 1 throughout stage I. Stage I duration 2 hours and 30 minutes. STAGE II: Delivery Patient was complete at 5:35 a.m. and went on to deliver a vigorous male at 6:04 p.m.. was vertex and rotated from ORACIO to ANH. Body delivered easily after the head. He was immediately placed on mother's abdomen. Cord was clamped and cut after 1 minute delay. Apgars were 8 and 9 though no strong cry. After several minutes he was taken to the warmer were heart rate and oxygen saturations were normal. He was then returned to mother. Stage II duration 29 minutes. STAGE III: Placenta/Cord Placenta delivered at 6:09 p.m. with gentle cord traction. Pitocin bolus given after delivery of the placenta. A second-degree short perineal lacerations reading was repaired with 3-0 chromic in the usual fashion with good hemostasis. Uterine fundus firm below umbilicus after delivery. EBL: 250 mL. Needle and sponge counts were correct. The vagina was inspected and no items were left in situ. Patient was doing well with [place], her and has been at bedside. Baby 1: gender: Male Presentation: vertex Position: Left Occiput Anterior Placenta delivery description: Spontaneous Cord Vessel Description: 3 Vessels score (1 min): 8 score (5 min): 9 Plan for aftercare: Routine care
[2021-11-22 19:43] VITALS: BP 127/68
[2021-11-22] MEDS: DERMOPLAST SPRAY 20% 60 ML 1 SPRAY TOP (20:02)
[2021-11-22] MEDS: IBUPROFEN 600 MG TABLET PO (20:03)
[2021-11-22] MEDS: ACETAMINOPHEN 325 MG TABLET 650 MG PO (20:03)
[2021-11-23] MEDS: ACETAMINOPHEN 325 MG TABLET 650 MG PO ×2 (02:04→14:37)
[2021-11-23] MEDS: IBUPROFEN 600 MG TABLET PO ×2 (02:04→14:38)
--- NOTE | 2021-11-23 06:40 | PM.OBDS.1 ---
Discharge Providers Provider Date of admission: 11/21/21 21:20 Discharge Date: 11/23/21 Primary care physician: Lucía Patton DO Consults: 11/23/21 18:31 Consult to [employer] Routine Comment: Discharge provider: Rosalie Fleming MD Summary Hospital Course Date Patient Seen: 11/23/21 Time Patient Seen: 06:41 Diagnoses: 39 week gestation , spontaneous vaginal delivery Hospital Course: Patient was admitted for induction for history of precipitous delivery. She received prostate gland followed by Pitocin. She received an epidural catheter for pain control. She had a spontaneous vaginal delivery with repair of a second-degree tear. She is doing well. She is ambulatory. She has some cramping pain with . She is breast-feeding without difficulty. Peripartum Data Delivery Method: Natural Vaginal Laceration Description: Perineal - 2nd Degree Procedures: Prostin followed by Pitocin induction. Epidural catheter for pain control. Spontaneous vaginal delivery with repair of second-degree tear. complications: none 1: Gender: Male Disposition of : home Discharge Diagnosis (1) Normal spontaneous vaginal delivery: Status: Acute Problem Details: With repair of second-degree tear, male Status at Discharge Cognitive/behavioral status at discharge: oriented Functional status at discharge: independent ambulation Overall status at discharge: patient is progressing back to baseline Time Spent with Patient Time attestation: Total time spent providing and/or coordinating discharge services: Time spent: Less than 30 minutes Objective Labs Result Diagrams: 11/21/21 21:40 Exam Vital Signs (past 8 hours): Blood pressure 122/73, pulse of 87, temperature 96.5 Narrative Exam Narrative: Abdomen is soft, nontender. Uterus is firm, at U, minimally tender. Repair intact. Mild lochia. Extremities without edema and nontender. Patient is Rh positive and rubella nonimmune. She will receive the rubella vaccine prior to discharge. She received Tdap in the 3rd trimester. Discharge Plan Discharge Plan Patient Disposition: Home Discharge orders & Medications Prescriptions: New ibuprofen 600 mg Tablet 600 mg PO Q6HR PRN (Reason: Pain, Mild (1-3)) Qty: 20 0RF Continued sertraline [Zoloft] 50 mg tablet 50 mg PO DAILY Qty: 90 1RF Flovent HFA 110 mcg/actuation HFA aerosol inhaler 1 puff inhalation BID Qty: 12 1RF albuterol sulfate [ProAir HFA] 90 mcg/actuation HFA aerosol inhaler See Rx Instructions .ROUTE .COMPLEX Qty: 9 11RF Dose Instruction: INHALE 2 PUFFS BY MOUTH EVERY 4 HOURS NEEDED FOR SHORTNESS OF BREATH OR WHEEZING Rx Instructions: INHALE 2 PUFFS BY MOUTH EVERY 4 HOURS NEEDED FOR SHORTNESS OF BREATH OR WHEEZING prenat.vits,tobias,loq-velo-semtw Tablet 1 tab PO DAILY 0RF Discontinued nifedipine 10 mg capsule 10 mg PO .Q2 PRN (Reason: Contractions) Qty: 30 0RF Rx Instructions: Take 1 tablet every 2 hours as needed for contractions. If after 3 doses contractions are not stopping discontinue medication and come to the [facility] Center pyridoxine (vitamin B6) 50 mg tablet 25 mg PO ONCE 0RF Unisom (doxylamine) 25 mg tablet 25 mg PO BEDTIME PRN0RF Follow up/Referrals: Lucía Patton DO [Primary Care Provider] - 6 Weeks Diet/Activity/Treatments Diet: Regular Activity: Nothing in vagina for 6 weeks Skin/Wound/Dressing Care Report to your healthcare provider any signs of infection, such as:: chills, fever and increased pain Discharge Data Primary Care Provider: Lucía Patton Attending Provider: Lucía Patton
[2021-11-23 06:45] LABS: Hematocrit 34.4 % (36-46); Hemoglobin 11.6 g/dL (12.0-16.0)
[2021-11-23] MEDS: SERTRALINE 50 MG TABLET PO (09:42)
[2021-11-23] MEDS: PRENATAL VIT,CALC/IRON/FOLIC 1 TABLET 1 TAB PO (09:43)
[2021-11-23] MEDS: DOCUSATE 100 MG CAPSULE PO (09:43)
[2021-11-23] MEDS: LANOLIN OINT 7 GM 1 APPLIC TOP (12:06)
[2021-11-23 14:37] VITALS: TEMP 36.6
[2021-11-23 14:38] VITALS: TEMP 36.6
[2021-11-23 20:27] VITALS: BP 118/86; PULSE 75; RESP 18; TEMP 36.6
== END 2021-11-23 21:20 | disposition home or self-care (01) | DRG 560 ==
PROVIDERS: Admitting Provider Family Medicine; Family Provider Family Medicine; PCP Family Medicine; Referring Provider Family Medicine; Visit Provider Family Medicine
DX: O99.52 Diseases of the respiratory system complicating childbirth (principal); Z3A.39 39 weeks gestation of pregnancy; Z37.0 Single live birth; J45.909 Unspecified asthma, uncomplicated; Z86.16 Personal history of COVID-19; O99.344 Other mental disorders complicating childbirth; F32.9 Major depressive disorder, single episode, unspecified; Z20.822 Contact with and (suspected) exposure to COVID-19; O70.1 Second degree perineal laceration during delivery
CPT/HCPCS: 01967; 36415; 59050; 59200; 59409; 76815; 85014; 85018; 85025; 86850; 86900; 86901; 87635; C9803; G0378; A9270; G0379; J2590

== ENCOUNTER → 2022-01-23 11:55 | Outpatient (CLI) | payer OTHER, MEDICAID, SELFPAY | PROVIDERS: Family Provider Family Medicine; PCP Family Medicine; Visit Provider Family Medicine | DX: N89.8 Other specified noninflammatory disorders of vagina (principal); Z39.2 Encounter for routine postpartum follow-up | CPT/HCPCS: 87210 ==

== ENCOUNTER → 2023-02-18 08:04 | Outpatient (CLI) | payer OTHER, MEDICAID, SELFPAY ==
[2023-02-18 09:27] LABS: Add Manual Diff / Slide Review NO; Basophils Absolute Auto 0 /uL (0-100); Basophils Percent Auto 0.4 % (0-2); Eosinophils Absolute Auto 400 /uL (0-450); Eosinophils Percent Auto 5.4 % (2-4); Hematocrit 36.8 % (36-46); Hemoglobin 12.3 g/dL (12.0-16.0); Lymphocytes Absolute Auto 1800 /uL (1100-4500); Lymphocytes Percent Auto 26.2 % (25-40); Mean Corpuscular HGB Conc 33.5 % (30-36); Mean Corpuscular Hemoglobin 28.7 PG (26-34); Mean Corpuscular Volume 85.8 fL (80-100); Monocytes Absolute Auto 600 /uL (0-900); Monocytes Percent Auto 8.1 % (3-14); Neutrophils Absolute Auto 4200 /uL (1500-7000); Neutrophils Percent Auto 59.9 % (50-75); Platelet Count 286 X10^3/uL (150-400); Red Blood Cell Count 4.29 X10^6/uL (4.0-5.2); Red Cell Distribution Width 13.7 % (11.6-14.8); White Blood Cell Count 6.9 X10^3/uL (4.5-11.0)
[2023-02-18 09:51] LABS: Alanine Aminotransferase 89 IU/L (<35); Albumin Globulin Ratio 1.4 (1.0-2.8); Alkaline Phosphatase 75 U/L (38-126); Aspartate Aminotransferase 28 IU/L (14-36); BUN Creatinine Ratio 20.3 (6-22); Bilirubin Total 0.4 mg/dL (0.2-1.3); Blood Urea Nitrogen 12 mg/dL (7-17); Calcium 8.6 mg/dL (8.4-10.2); Carbon Dioxide 25 mmol/L (22-32); Chloride 102 mmol/L (98-107); Estimated Glomerular Filt Rate > 60 mL/min (>60); Globulin 2.9 g/dL (1.7-4.1); Glucose 95 mg/dL (70-100); HEMOLYSIS < 15 (0-50); Potassium 4.2 mmol/L (3.4-5.1); Sodium 136 mmol/L (137-145); Total Protein 6.9 g/dL (6.3-8.2); Uric Acid 2.6 mg/dL (2.5-6.2)
[2023-02-18 10:03] LABS: Appearance Urine UA SL CLOUDY; Bilirubin Urine UA NEGATIVE (NEGATIVE); Color Urine UA YELLOW; Glucose Urine UA NEGATIVE (Negative); Ketones Urine UA NEGATIVE (NEGATIVE); Leukocyte Esterase Urine UA NEGATIVE (NEGATIVE); Nitrite Urine UA NEGATIVE (Negative); Occult Blood Urine UA NEGATIVE (Negative); Protein Urine UA TRACE (Negative); Specific Gravity Urine UA 1.025 (1.000-1.035)
[2023-02-18 10:31] LABS: pH Urine UA 6.5 (4.5-8.0)
[2023-02-18 17:54] LABS: HIV 1 & 2 Ab/Ag 4th Gen Combo NEGATIVE (NEGATIVE); Hep C Virus Ab w/Reflex Quant NEGATIVE s/c (NEGATIVE); Hepatitis B Surface Antigen NEGATIVE s/c (NEGATIVE)
[2023-02-19 07:17] LABS: RPR Screen Non Reactive (Non Reactive)
[2023-02-19 08:26] LABS: Varicella IgG Antibody 642 index (Immune >165)
[2023-02-20 11:11] LABS: Creatinine Urine Random 284.2 mg/dL
[2023-02-20 11:12] LABS: Protein (Total) Urine Random < 5 mg/dL (0-12); Protein Creatinine Ratio Urine 0.01 GRAM/24H
== END ==
PROVIDERS: Family Provider Family Medicine; PCP Family Medicine; Referring Provider Family Medicine; Visit Provider Family Medicine
DX: O16.9 Unspecified maternal hypertension, unspecified trimester (principal); Z3A.00 Weeks of gestation of pregnancy not specified
CPT/HCPCS: 36415; 80053; 80055; 81003; 82570; 84156; 84550; 86787; 86803; 86850; 86900; 86901; 87086; 87389

== ENCOUNTER → 2023-03-27 13:22 | Outpatient (CLI) | payer OTHER, MEDICAID, SELFPAY ==
[2023-03-27 14:12] LABS: Add Manual Diff / Slide Review NO; Basophils Absolute Auto 0 /uL (0-100); Basophils Percent Auto 0.4 % (0-2); Eosinophils Absolute Auto 300 /uL (0-450); Eosinophils Percent Auto 3.5 % (2-4); Hemoglobin 12.6 g/dL (12.0-16.0); Lymphocytes Absolute Auto 1700 /uL (1100-4500); Lymphocytes Percent Auto 19.5 % (25-40); Mean Corpuscular HGB Conc 33.9 % (30-36); Mean Corpuscular Hemoglobin 28.9 PG (26-34); Mean Corpuscular Volume 85.2 fL (80-100); Monocytes Absolute Auto 700 /uL (0-900); Monocytes Percent Auto 7.4 % (3-14); Neutrophils Absolute Auto 6200 /uL (1500-7000); Neutrophils Percent Auto 69.2 % (50-75); Platelet Count 290 X10^3/uL (150-400); Red Blood Cell Count 4.35 X10^6/uL (4.0-5.2); Red Cell Distribution Width 13.3 % (11.6-14.8)
[2023-03-27 14:39] LABS: Alanine Aminotransferase 16 IU/L (<35); Albumin 4.2 g/dL (3.5-5.0); Albumin Globulin Ratio 1.3 (1.0-2.8); Alkaline Phosphatase 47 U/L (38-126); Aspartate Aminotransferase 20 IU/L (14-36); BUN Creatinine Ratio 21.2 (6-22); Bilirubin Total 0.3 mg/dL (0.2-1.3); Blood Urea Nitrogen 11 mg/dL (7-17); Calcium 9.5 mg/dL (8.4-10.2); Carbon Dioxide 25 mmol/L (22-32); Chloride 100 mmol/L (98-107); Estimated Glomerular Filt Rate > 60 mL/min (>60); Globulin 3.2 g/dL (1.7-4.1); Glucose 91 mg/dL (70-100); HEMOLYSIS < 15 (0-50); Potassium 3.5 mmol/L (3.4-5.1); Sodium 133 mmol/L (137-145); Total Protein 7.4 g/dL (6.3-8.2)
== END ==
PROVIDERS: Family Provider Family Medicine; PCP Family Medicine; Referring Provider Family Medicine; Visit Provider Family Medicine
DX: O09.299 Supervision of pregnancy with other poor reproductive or obstetric history, unspecified trimester (principal); O16.1 Unspecified maternal hypertension, first trimester
CPT/HCPCS: 36415; 80053; 85025

== ENCOUNTER → 2023-03-30 11:57 | Outpatient (CLI) | payer OTHER, MEDICAID, SELFPAY ==
[2023-03-30 13:29] LABS: Collection Time Urine 24 Hours; Protein (Total) Urine Random 9 mg/dL (0-12); Total Protein 24 Hour Urine 99 mg/day (42-225); Total Volume Urine 1100 mL
== END ==
PROVIDERS: Family Provider Family Medicine; PCP Family Medicine; Referring Provider Family Medicine; Visit Provider Family Medicine
DX: O09.299 Supervision of pregnancy with other poor reproductive or obstetric history, unspecified trimester (principal); O16.1 Unspecified maternal hypertension, first trimester
CPT/HCPCS: 84156

== ENCOUNTER → 2023-06-02 11:38 | Outpatient (CLI) | payer OTHER, MEDICAID, SELFPAY ==
[2023-06-04 21:40] LABS: AFP, Serum 98.7 ng/mL (.); Estriol, Free 2.88 ng/mL (.); Inhibin A, Dimeric 135.68 pg/mL (.); Inhibin A, MoM 0.72 (.); Maternal Ethnicity Caucasian (.); Maternal Weight 146 lbs (.); Number of Fetuses No (.); OSBR Risk 1 IN 1944 (.); Results Report (.); Test Results *Screen Negative* (.); hCG, MoM 0.44 (.); hCG, Serum 13864 mIU/mL (.)
== END ==
PROVIDERS: Family Provider Family Medicine; PCP Family Medicine; Referring Provider Family Medicine; Visit Provider Family Medicine
DX: O09.299 Supervision of pregnancy with other poor reproductive or obstetric history, unspecified trimester (principal); Z34.80 Encounter for supervision of other normal pregnancy, unspecified trimester
CPT/HCPCS: 36415; 82105; 82677; 84702; 86336

== ENCOUNTER → 2023-07-02 09:41 | Outpatient (CLI) | payer OTHER, MEDICAID, SELFPAY ==
[2023-07-02 11:02] LABS: Add Manual Diff / Slide Review NO; Basophils Absolute Auto 0 /uL (0-100); Basophils Percent Auto 0.4 % (0-2); Eosinophils Absolute Auto 200 /uL (0-450); Eosinophils Percent Auto 2.8 % (2-4); Hematocrit 34.7 % (36-46); Hemoglobin 11.8 g/dL (12.0-16.0); Lymphocytes Absolute Auto 1400 /uL (1100-4500); Lymphocytes Percent Auto 15.9 % (25-40); Mean Corpuscular Hemoglobin 29.8 PG (26-34); Mean Corpuscular Volume 87.6 fL (80-100); Monocytes Absolute Auto 500 /uL (0-900); Monocytes Percent Auto 6.1 % (3-14); Neutrophils Absolute Auto 6500 /uL (1500-7000); Neutrophils Percent Auto 74.8 % (50-75); Platelet Count 245 X10^3/uL (150-400); Red Blood Cell Count 3.96 X10^6/uL (4.0-5.2); Red Cell Distribution Width 13.4 % (11.6-14.8); White Blood Cell Count 8.7 X10^3/uL (4.5-11.0)
[2023-07-02 11:32] LABS: Alanine Aminotransferase 13 IU/L (<35); Albumin 3.6 g/dL (3.5-5.0); Albumin Globulin Ratio 1.3 (1.0-2.8); Alkaline Phosphatase 57 U/L (38-126); Aspartate Aminotransferase 17 IU/L (14-36); BUN Creatinine Ratio 26.5 (6-22); Blood Urea Nitrogen 13 mg/dL (7-17); Carbon Dioxide 20 mmol/L (22-32); Chloride 105 mmol/L (98-107); Estimated Glomerular Filt Rate > 60 mL/min (>60); Globulin 2.8 g/dL (1.7-4.1); Glucose 101 mg/dL (70-100); HEMOLYSIS < 15 (0-50); Potassium 3.6 mmol/L (3.4-5.1); Sodium 133 mmol/L (137-145); Total Protein 6.4 g/dL (6.3-8.2)
[2023-07-02 11:36] LABS: Bilirubin Total < 0.1 mg/dL (0.2-1.3)
[2023-07-02 16:18] LABS: Protein (Total) Urine Random < 5 mg/dL (0-12); Protein Creatinine Ratio Urine 0.02 GRAM/24H
== END ==
PROVIDERS: Family Provider Family Medicine; PCP Family Medicine; Referring Provider Family Medicine; Visit Provider Family Medicine
DX: O10.919 Unspecified pre-existing hypertension complicating pregnancy, unspecified trimester (principal); O09.299 Supervision of pregnancy with other poor reproductive or obstetric history, unspecified trimester
CPT/HCPCS: 36415; 80053; 82570; 84156; 85025

== ENCOUNTER → 2023-07-06 12:03 | Outpatient (CLI) | payer OTHER, MEDICAID, SELFPAY ==
[2023-07-06 16:56] LABS: Collection Time Urine 24 Hours; Protein (Total) Urine Random 8 mg/dL (0-12); Total Protein 24 Hour Urine 120 mg/day (42-225); Total Volume Urine 1500 mL
== END ==
PROVIDERS: Family Provider Family Medicine; PCP Family Medicine; Referring Provider Family Medicine; Visit Provider Family Medicine
DX: O10.919 Unspecified pre-existing hypertension complicating pregnancy, unspecified trimester (principal); O09.299 Supervision of pregnancy with other poor reproductive or obstetric history, unspecified trimester
CPT/HCPCS: 84156

== ENCOUNTER → 2023-07-21 09:24 | Outpatient (CLI) | payer OTHER, MEDICAID, SELFPAY ==
[2023-07-21 13:06] LABS: Add Manual Diff / Slide Review NO; Basophils Absolute Auto 0 /uL (0-100); Basophils Percent Auto 0.4 % (0-2); Eosinophils Absolute Auto 400 /uL (0-450); Eosinophils Percent Auto 4.3 % (2-4); Hematocrit 33.4 % (36-46); Hemoglobin 11.4 g/dL (12.0-16.0); Lymphocytes Absolute Auto 1300 /uL (1100-4500); Lymphocytes Percent Auto 14.3 % (25-40); Mean Corpuscular HGB Conc 34.1 % (30-36); Mean Corpuscular Hemoglobin 29.5 PG (26-34); Mean Corpuscular Volume 86.5 fL (80-100); Monocytes Absolute Auto 500 /uL (0-900); Monocytes Percent Auto 5.7 % (3-14); Neutrophils Absolute Auto 6600 /uL (1500-7000); Neutrophils Percent Auto 75.3 % (50-75); Platelet Count 253 X10^3/uL (150-400); Red Blood Cell Count 3.86 X10^6/uL (4.0-5.2); Red Cell Distribution Width 13.3 % (11.6-14.8); White Blood Cell Count 8.8 X10^3/uL (4.5-11.0)
[2023-07-21 13:35] LABS: GTT (PREG) 1 Hour PP 50gm Dose 109 mg/dL (76-139)
== END ==
PROVIDERS: Family Provider Family Medicine; PCP Family Medicine; Referring Provider Family Medicine; Visit Provider Family Medicine
DX: Z34.80 Encounter for supervision of other normal pregnancy, unspecified trimester (principal); O10.919 Unspecified pre-existing hypertension complicating pregnancy, unspecified trimester
CPT/HCPCS: 36415; 82950; 85025

== ENCOUNTER → 2023-08-13 11:41 | Outpatient (CLI) | payer OTHER, MEDICAID, SELFPAY ==
[2023-08-13 12:26] LABS: Add Manual Diff / Slide Review NO; Basophils Absolute Auto 0 /uL (0-100); Basophils Percent Auto 0.4 % (0-2); Eosinophils Absolute Auto 200 /uL (0-450); Hematocrit 33.9 % (36-46); Hemoglobin 11.5 g/dL (12.0-16.0); Lymphocytes Absolute Auto 1400 /uL (1100-4500); Lymphocytes Percent Auto 17.8 % (25-40); Mean Corpuscular Hemoglobin 29.5 PG (26-34); Mean Corpuscular Volume 86.7 fL (80-100); Monocytes Absolute Auto 600 /uL (0-900); Monocytes Percent Auto 7.7 % (3-14); Neutrophils Absolute Auto 5800 /uL (1500-7000); Neutrophils Percent Auto 72.1 % (50-75); Platelet Count 226 X10^3/uL (150-400); Red Blood Cell Count 3.91 X10^6/uL (4.0-5.2); Red Cell Distribution Width 13.2 % (11.6-14.8); White Blood Cell Count 8.1 X10^3/uL (4.5-11.0)
[2023-08-13 13:11] LABS: Alanine Aminotransferase 12 IU/L (<35); Albumin 3.6 g/dL (3.5-5.0); Albumin Globulin Ratio 1.3 (1.0-2.8); Alkaline Phosphatase 79 U/L (38-126); Aspartate Aminotransferase 18 IU/L (14-36); Bilirubin Total 0.5 mg/dL (0.2-1.3); Blood Urea Nitrogen 11 mg/dL (7-17); Carbon Dioxide 24 mmol/L (22-32); Chloride 100 mmol/L (98-107); Estimated Glomerular Filt Rate > 60 mL/min (>60); Globulin 2.8 g/dL (1.7-4.1); Glucose 84 mg/dL (70-100); HEMOLYSIS < 15 (0-50); Potassium 3.9 mmol/L (3.4-5.1); Sodium 131 mmol/L (137-145); Total Protein 6.4 g/dL (6.3-8.2)
[2023-08-13 18:41] LABS: Creatinine Urine Random 181.2 mg/dL
[2023-08-13 19:10] LABS: Protein (Total) Urine Random < 5 mg/dL (0-12); Protein Creatinine Ratio Urine 0.02 GRAM/24H
== END ==
PROVIDERS: Family Provider Family Medicine; PCP Family Medicine; Referring Provider Family Medicine; Visit Provider Family Medicine
DX: O10.919 Unspecified pre-existing hypertension complicating pregnancy, unspecified trimester (principal)
CPT/HCPCS: 36415; 80053; 82570; 84156; 85025

== ENCOUNTER → 2023-08-15 12:05 | Outpatient (CLI) | payer OTHER, MEDICAID, SELFPAY ==
[2023-08-15 16:35] LABS: Collection Time Urine 24 Hours; Protein (Total) Urine Random 8 mg/dL (0-12); Total Protein 24 Hour Urine 100 mg/day (42-225); Total Volume Urine 1250 mL
== END ==
PROVIDERS: Family Provider Family Medicine; PCP Family Medicine; Referring Provider Family Medicine; Visit Provider Family Medicine
DX: O10.919 Unspecified pre-existing hypertension complicating pregnancy, unspecified trimester (principal); O09.299 Supervision of pregnancy with other poor reproductive or obstetric history, unspecified trimester
CPT/HCPCS: 84156

== ENCOUNTER 2023-08-25 13:02 | Outpatient (CLI) | payer OTHER, MEDICAID, SELFPAY ==
--- NOTE | 2023-08-25 13:50 | P.TNLD_ITS ---
Visit Information Visit Information Date of evaluation: 08/25/23 Primary OB Provider: Marianela Roe On-call OB Provider: Suad Leos Reason for Evaluation: Yes non-stress test Comments/Additional reasons for admission: with chronic hypertension here for NST. [facility] Medical History (Updated 06/12/23 @ 09:11 by Marianela Roe MD) Normal spontaneous vaginal delivery (~11/22/21) Seasonal allergic rhinitis Eczema Depression Gastrointestinal distress History of fibromyalgia (~2018) Anxiety (spontaneous vaginal delivery) (~06/11/17) (spontaneous vaginal delivery) (~01/14/19) Pre-eclampsia (~2016) Asthma Surgical History S/P tympanostomy tube placement Family History (Updated 02/10/23 @ 11:25 by Ibeth Apodaca RN) Father Hypertension Mother Adopted Schizophrenia Grandfather Family estrangement Grandmother No problems noted. Grandfather Aneurysm Grandmother Cancer CVA (cerebral vascular accident) Brother No problems noted. Sister No problems noted. 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 travel history: recent ([place]) seatbelt use: always water heater temp set < 120 deg: Yes working smoke detector in home: Yes fire extinguisher in home: No carbon monox detector in home: No firearms in home: No do you feel safe at home: Yes Smoking Status: Never smoker Tobacco: How many years used: 2 (never habitual, only when drinking) second hand exposure: Yes ( vapes MJ) alcohol intake: former (1-2 beers/night when not ) substance use type: does not use and marijuana (uses CBD products for nerve pain) during the past year weight has: other (back to pre-baby weight (youngest 15 months old)) well-balanced diet: daily or most days daily servings fruits/ve-4 caffeine: Yes (AM small cup coffee) Type(s) of exercise: none Exam Vital Signs (past 8 hours): Bp 113/65 Evaluation Evaluation Baseline heart rate: 145 Variability: Average (6-10) monitor accelerations: Absent Monitor Decelerations: Absent Category of Tracing: Reactive Status: Category l Diagnosis, Plan/Disposition Plan/Disposition Plan: Reactive NST. Safe to discharge. OB Disposition: home
== END 2023-08-25 14:05 | disposition home or self-care (01) ==
LOC: LABOR 13:57 → OB 08-27 12:25
PROVIDERS: Family Provider Family Medicine; PCP Family Medicine; Referring Provider Student in an Organized Health Care Education/Training Program; Visit Provider Student in an Organized Health Care Education/Training Program
DX: O10.913 Unspecified pre-existing hypertension complicating pregnancy, third trimester (principal); Z3A.32 32 weeks gestation of pregnancy
CPT/HCPCS: 59025; G0378; G0379

== ENCOUNTER 2023-08-28 11:05 | Outpatient (CLI) | payer OTHER, MEDICAID, SELFPAY | END 2023-08-28 11:50 | disposition home or self-care (01) | LOC: OB 09-01 08:54 | PROVIDERS: Family Provider Family Medicine; PCP Family Medicine; Referring Provider Family Medicine; Visit Provider Family Medicine | DX: O10.31 Pre-existing hypertensive heart and chronic kidney disease complicating pregnancy (principal); Z3A.33 33 weeks gestation of pregnancy | CPT/HCPCS: 59025; G0378; G0379 ==

== ENCOUNTER 2023-09-01 10:24 | Outpatient (CLI) | payer OTHER, MEDICAID, SELFPAY ==
--- NOTE | 2023-09-01 11:34 | PM.OBTRLD ---
Visit Information Visit Information Date of evaluation: 09/01/23 Primary OB Provider: Marianela Roe Comments/Additional reasons for admission: Pt is a 33yo at 33w1d here for NST for chronic HTN. [facility] Medical History (Updated 06/12/23 @ 09:11 by Marianela Roe MD) Normal spontaneous vaginal delivery (~11/22/21) Seasonal allergic rhinitis Eczema Depression Gastrointestinal distress History of fibromyalgia (~2018) Anxiety (spontaneous vaginal delivery) (~06/11/17) (spontaneous vaginal delivery) (~01/14/19) Pre-eclampsia (~2016) Asthma Surgical History S/P tympanostomy tube placement Family History (Updated 02/10/23 @ 11:25 by Ibeth Apodaca RN) Father Hypertension Mother Adopted Schizophrenia Grandfather Family estrangement Grandmother No problems noted. Grandfather Aneurysm Grandmother Cancer CVA (cerebral vascular accident) Brother No problems noted. Sister No problems noted. 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 travel history: recent ([place]) seatbelt use: always water heater temp set < 120 deg: Yes working smoke detector in home: Yes fire extinguisher in home: No carbon monox detector in home: No firearms in home: No do you feel safe at home: Yes Smoking Status: Never smoker Tobacco: How many years used: 2 (never habitual, only when drinking) second hand exposure: Yes ( vapes MJ) alcohol intake: former (1-2 beers/night when not ) substance use type: does not use and marijuana (uses CBD products for nerve pain) during the past year weight has: other (back to pre-baby weight (youngest 15 months old)) well-balanced diet: daily or most days daily servings fruits/ve-4 caffeine: Yes (AM small cup coffee) Type(s) of exercise: none Evaluation Evaluation Baseline heart rate: 130 Variability: Moderate (11-25) monitor accelerations: Present Monitor Decelerations: Absent Diagnosis, Plan/Disposition Final Diagnosis (1) Chronic hypertension affecting : Status: Acute Plan/Disposition Plan: Pt is a 33yo at 33w1d here for NST for chronic HTN. NST reactive. Stable for d/c home. OB Disposition: home
== END 2023-09-01 11:38 | disposition home or self-care (01) ==
LOC: OB 09-03 10:01
PROVIDERS: Family Provider Family Medicine; PCP Family Medicine; Referring Provider Family Medicine; Visit Provider Family Medicine
DX: O10.913 Unspecified pre-existing hypertension complicating pregnancy, third trimester (principal); Z3A.33 33 weeks gestation of pregnancy
CPT/HCPCS: 59025; G0378; G0379

== ENCOUNTER 2023-09-04 11:02 | Outpatient (CLI) | payer OTHER, MEDICAID, SELFPAY ==
--- NOTE | 2023-09-04 15:00 | P.TNLD_ITS ---
Visit Information Visit Information Date of evaluation: 09/04/23 Primary OB Provider: Marianela Roe Comments/Additional reasons for admission: 33yo at 33w4d here for NST for chronic HTN. [facility] Medical History (Updated 06/12/23 @ 09:11 by Marianela Roe MD) Normal spontaneous vaginal delivery (~11/22/21) Seasonal allergic rhinitis Eczema Depression Gastrointestinal distress History of fibromyalgia (~2018) Anxiety (spontaneous vaginal delivery) (~06/11/17) (spontaneous vaginal delivery) (~01/14/19) Pre-eclampsia (~2016) Asthma Surgical History S/P tympanostomy tube placement Family History (Updated 02/10/23 @ 11:25 by Ibeth Apodaca RN) Father Hypertension Mother Adopted Schizophrenia Grandfather Family estrangement Grandmother No problems noted. Grandfather Aneurysm Grandmother Cancer CVA (cerebral vascular accident) Brother No problems noted. Sister No problems noted. 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 travel history: recent ([place]) seatbelt use: always water heater temp set < 120 deg: Yes working smoke detector in home: Yes fire extinguisher in home: No carbon monox detector in home: No firearms in home: No do you feel safe at home: Yes Smoking Status: Never smoker Tobacco: How many years used: 2 (never habitual, only when drinking) second hand exposure: Yes ( vapes MJ) alcohol intake: former (1-2 beers/night when not ) substance use type: does not use and marijuana (uses CBD products for nerve pain) during the past year weight has: other (back to pre-baby weight (youngest 15 months old)) well-balanced diet: daily or most days daily servings fruits/ve-4 caffeine: Yes (AM small cup coffee) Type(s) of exercise: none Evaluation Evaluation Baseline heart rate: 140 Variability: Moderate (11-25) monitor accelerations: Present Monitor Decelerations: Absent Diagnosis, Plan/Disposition Final Diagnosis (1) Chronic hypertension affecting : Status: Acute Plan/Disposition Plan: 33yo at 33w4d here for NST for chronic HTN. NST reactive. Stable for d/c home. Continue testing. OB Disposition: home
== END 2023-09-04 11:57 | disposition home or self-care (01) ==
LOC: LABOR 12:16 → OB 09-07 14:10
PROVIDERS: Family Provider Family Medicine; PCP Family Medicine; Referring Provider Family Medicine; Visit Provider Family Medicine
DX: O13.3 Gestational [pregnancy-induced] hypertension without significant proteinuria, third trimester (principal); Z3A.33 33 weeks gestation of pregnancy
CPT/HCPCS: 59025; G0378; G0379

== ENCOUNTER 2023-09-08 10:38 | Outpatient (CLI) | payer OTHER, MEDICAID, SELFPAY ==
--- NOTE | 2023-09-08 11:20 | DI.US.S_ITS ---
PROCEDURE: US OB BIOPHYSICAL PROFILE INDICATIONS: 34 weeks nonreactive NST OUTSIDE/PRIOR DATING DATA: Last menstrual period (LMP): Unknown. LMP-based estimated date of delivery (NADIA): Not applicable. First dating scan (date and location): Not available. Estimated date of delivery (NADIA) from first dating scan: Not applicable. The calculations are made using the ultrasound NADIA of 10/19/2023. TECHNIQUE: Real-time scanning was performed of the fetus for biophysical profile, with image documentation. Endovaginal scanning: Not performed COMPARISON: None. FINDINGS: General: A single living intrauterine gestation is present. Presentation: Vertex. Placenta: Placental position is anterior , without previa. Amniotic fluid index: 14.6 cm, normal range is 5-24 cm. Single deepest vertical pocket is 4.6 cm. heart rate: 152 beats per minute. Maternal cervical canal not well visualized. Estimated gestational age from initial scan: 34 weeks 1 day. Biophysical profile: Tone: 2 points. Movement: 2 points. Respiration: 0 points. Largest pocket of fluid: 2 points. IMPRESSION: Single living intrauterine at 34 weeks 1 day, NADIA of 10/19/2023. BPP 6 of 8. We strive to produce accurate, complete, and clear reports of imaging services. To assist us in improving patient care, this report was composed using standard report templates and voice recognition software. Therefore, it may contain abnormal punctuation, insertions and/or omissions. Occasional wrong-word or sound-alike substitutions may occur. Though we review the report and make efforts to correct it, we do recommend that the report be read carefully in proper context to recognize any text inaccuracies. Dictated by: Torey Solorzano M.D. on 09/08/2023 at 13:31 Approved by: Torey Solorzano M.D. on 09/08/2023 at 13:32
--- NOTE | 2023-09-08 11:20 | PM.OBTRLD ---
Visit Information Visit Information Date of evaluation: 09/08/23 Primary OB Provider: Marianela Roe Comments/Additional reasons for admission: 33yo at 34w1d here for NST for chronic HTN. [facility] Medical History (Updated 06/12/23 @ 09:11 by Marianela Roe MD) Normal spontaneous vaginal delivery (~11/22/21) Seasonal allergic rhinitis Eczema Depression Gastrointestinal distress History of fibromyalgia (~2018) Anxiety (spontaneous vaginal delivery) (~06/11/17) (spontaneous vaginal delivery) (~01/14/19) Pre-eclampsia (~2016) Asthma Surgical History S/P tympanostomy tube placement Family History (Updated 02/10/23 @ 11:25 by Ibeth Apodaca RN) Father Hypertension Mother Adopted Schizophrenia Grandfather Family estrangement Grandmother No problems noted. Grandfather Aneurysm Grandmother Cancer CVA (cerebral vascular accident) Brother No problems noted. Sister No problems noted. 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 history: recent ([place]) seatbelt use: always water heater temp set < 120 deg: Yes working smoke detector in home: Yes fire extinguisher in home: No carbon monox detector in home: No firearms in home: No do you feel safe at home: Yes Smoking Status: Never smoker Tobacco: How many years used: 2 (never habitual, only when drinking) second hand exposure: Yes ( vapes MJ) alcohol intake: former (1-2 beers/night when not ) substance use type: does not use and marijuana (uses CBD products for nerve pain) during the past year weight has: other (back to pre-baby weight (youngest 15 months old)) well-balanced diet: daily or most days daily servings fruits/ve-4 caffeine: Yes (AM small cup coffee) Type(s) of exercise: none Objective Labs 09/08/23 11:30 09/08/23 11:30 Evaluation Evaluation Baseline heart rate: 160 Variability: Moderate (11-25) monitor accelerations: Absent Monitor Decelerations: Absent Category of Tracing: Non-reactive Diagnosis, Plan/Disposition Final Diagnosis (1) Chronic hypertension affecting : Status: Acute Plan/Disposition Plan: 33yo at 34w1d here for NST for chronic HTN. NST nonreactive with only 10x10 accels, BPP 6/8 with points off for breathing (breathing seen, but not long enough). BP slightly elevated - labs sent and pending. Stable for d/c home with ongoing twice weekly testing. OB Disposition: home
[2023-09-08 11:46] LABS: Add Manual Diff / Slide Review NO; Basophils Absolute Auto 0 /uL (0-100); Basophils Percent Auto 0.4 % (0-2); Eosinophils Absolute Auto 100 /uL (0-450); Eosinophils Percent Auto 1.7 % (2-4); Hematocrit 33.3 % (36-46); Hemoglobin 11.3 g/dL (12.0-16.0); Lymphocytes Absolute Auto 1400 /uL (1100-4500); Lymphocytes Percent Auto 18.5 % (25-40); Mean Corpuscular HGB Conc 33.9 % (30-36); Mean Corpuscular Hemoglobin 28.8 PG (26-34); Mean Corpuscular Volume 84.9 fL (80-100); Monocytes Absolute Auto 500 /uL (0-900); Monocytes Percent Auto 6.1 % (3-14); Neutrophils Absolute Auto 5600 /uL (1500-7000); Neutrophils Percent Auto 73.3 % (50-75); Platelet Count 224 X10^3/uL (150-400); Red Blood Cell Count 3.92 X10^6/uL (4.0-5.2); Red Cell Distribution Width 13.1 % (11.6-14.8); White Blood Cell Count 7.7 X10^3/uL (4.5-11.0)
[2023-09-08 12:01] LABS: Alanine Aminotransferase 15 IU/L (<35); Albumin 3.5 g/dL (3.5-5.0); Alkaline Phosphatase 112 U/L (38-126); Aspartate Aminotransferase 20 IU/L (14-36); BUN Creatinine Ratio 19.6 (6-22); Bilirubin Total 0.5 mg/dL (0.2-1.3); Blood Urea Nitrogen 9 mg/dL (7-17); Carbon Dioxide 22 mmol/L (22-32); Chloride 102 mmol/L (98-107); Estimated Glomerular Filt Rate > 60 mL/min (>60); Globulin 3.4 g/dL (1.7-4.1); Glucose 120 mg/dL (70-100); HEMOLYSIS < 15 (0-50); Potassium 3.7 mmol/L (3.4-5.1); Sodium 130 mmol/L (137-145); Total Protein 6.9 g/dL (6.3-8.2)
[2023-09-08 17:49] LABS: Creatinine Urine Random 83.4 mg/dL; Protein (Total) Urine Random 6 mg/dL (0-12); Protein Creatinine Ratio Urine 0.07 GRAM/24H
== END 2023-09-08 12:30 | disposition home or self-care (01) ==
LOC: LABOR 12:26 → OB 09-10 16:24
PROVIDERS: Family Provider Family Medicine; PCP Family Medicine; Referring Provider Family Medicine; Visit Provider Family Medicine
DX: O10.913 Unspecified pre-existing hypertension complicating pregnancy, third trimester (principal); Z3A.34 34 weeks gestation of pregnancy
CPT/HCPCS: 36415; 59025; 76819; 80053; 82570; 84156; 85025; G0378; G0379

== ENCOUNTER 2023-09-10 11:02 | Outpatient (CLI) | payer OTHER, MEDICAID, SELFPAY ==
--- NOTE | 2023-09-10 11:59 | DI.US.S_ITS ---
PROCEDURE: US OB BIOPHYSICAL PROFILE INDICATIONS: BPP OUTSIDE/PRIOR DATING DATA: Last menstrual period (LMP): Not applicable LMP-based estimated date of delivery (NADIA): Not applicable First dating scan (date and location): Not available Estimated date of delivery (NADIA) from first dating scan: 10/19/2023 TECHNIQUE: Real-time scanning was performed of the fetus for biophysical profile, with image documentation. Endovaginal scanning: Not indicated COMPARISON: [facility], , OB BIOPHYSICAL PROFILE, 09/08/2023, 11:46. FINDINGS: General: A single living intrauterine gestation is present. Presentation: Vertex Placenta: Placental position is anterior, without previa. Amniotic fluid index: 14.1 cm, normal range is 5-24 cm. Single deepest vertical pocket is 6.2 cm. heart rate: 158 beats per minute. Maternal cervical canal: Not well seen. Biophysical profile: Tone: 2 points. Movement: 2 points. Respiration: 2 points. Largest pocket of fluid: 2 points. IMPRESSION: Single live intrauterine gestation with fetus in vertex presentation. heart rate is 158 beats per minute. Normal amount of amniotic fluid. JHON equals 14.1 cm with the largest pocket measures 6.2 cm. biophysical profile score is 8/8. We strive to produce accurate, complete, and clear reports of imaging services. To assist us in improving patient care, this report was composed using standard report templates and voice recognition software. Therefore, it may contain abnormal punctuation, insertions and/or omissions. Occasional wrong-word or sound-alike substitutions may occur. Though we review the report and make efforts to correct it, we do recommend that the report be read carefully in proper context to recognize any text inaccuracies. Dictated by: Jovany Vance M.D. on 09/10/2023 at 13:55 Approved by: Jovany Vance M.D. on 09/10/2023 at 14:15
== END 2023-09-10 12:45 | disposition home or self-care (01) ==
LOC: LABOR 12:11 → OB 09-15 11:22
PROVIDERS: Family Provider Family Medicine; PCP Family Medicine; Referring Provider Family Medicine; Visit Provider Family Medicine
DX: O16.3 Unspecified maternal hypertension, third trimester (principal); Z3A.34 34 weeks gestation of pregnancy
CPT/HCPCS: 59025; 76819; G0378; G0379

== ENCOUNTER 2023-09-15 09:06 | Outpatient (CLI) | payer OTHER, MEDICAID, SELFPAY ==
--- NOTE | 2023-09-15 09:39 | P.TNLD_ITS ---
Visit Information Visit Information Date of evaluation: 09/15/23 Primary OB Provider: Marianela Roe Comments/Additional reasons for admission: 33yo at 35w1d here for NST for chronic HTN. [facility] Medical History (Updated 06/12/23 @ 09:11 by Marianela Roe MD) Normal spontaneous vaginal delivery (~11/22/21) Seasonal allergic rhinitis Eczema Depression Gastrointestinal distress History of fibromyalgia (~2018) Anxiety (spontaneous vaginal delivery) (~06/11/17) (spontaneous vaginal delivery) (~01/14/19) Pre-eclampsia (~2016) Asthma Surgical History S/P tympanostomy tube placement Family History (Updated 02/10/23 @ 11:25 by Ibeth Apodaca RN) Father Hypertension Mother Adopted Schizophrenia Grandfather Family estrangement Grandmother No problems noted. Grandfather Aneurysm Grandmother Cancer CVA (cerebral vascular accident) Brother No problems noted. Sister No problems noted. 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 history: recent ([place]) seatbelt use: always water heater temp set < 120 deg: Yes working smoke detector in home: Yes fire extinguisher in home: No carbon monox detector in home: No firearms in home: No do you feel safe at home: Yes Smoking Status: Never smoker Tobacco: How many years used: 2 (never habitual, only when drinking) second hand exposure: Yes ( vapes MJ) alcohol intake: former (1-2 beers/night when not ) substance use type: does not use and marijuana (uses CBD products for nerve pain) during the past year weight has: other (back to pre-baby weight (youngest 15 months old)) well-balanced diet: daily or most days daily servings fruits/ve-4 caffeine: Yes (AM small cup coffee) Type(s) of exercise: none Evaluation Evaluation Baseline heart rate: 140 Variability: Moderate (11-25) monitor accelerations: Absent (x1 only) Monitor Decelerations: Absent Category of Tracing: Non-reactive Diagnosis, Plan/Disposition Final Diagnosis (1) Chronic hypertension affecting : Status: Acute Plan/Disposition Plan: 33yo at 35w1d here for NST for chronic HTN. NST nonreactive with only one decel, BPP 6/8. Continue testing. Stable for d/c home. OB Disposition: home
--- NOTE | 2023-09-15 09:40 | DI.US.S_ITS ---
PROCEDURE: US OB BIOPHYSICAL PROFILE INDICATIONS: CHRONIC HYPERTENSION OUTSIDE/PRIOR DATING DATA: Last menstrual period (LMP): 01/12/2023 LMP-based estimated date of delivery (NADIA): 10/19/2023 First dating scan (date and location): Unknown. Estimated date of delivery (NADIA) from first dating scan: 10/19/2023. The calculations are made using the clinical/ultrasound NADIA of 10/19/2023. TECHNIQUE: Real-time scanning was performed of the fetus, with image documentation and biometric measurements. Biophysical profile was also obtained. COMPARISON: [facility], OB BIOPHYSICAL PROFILE, 09/10/2023, 12:28. FINDINGS: General: A single living intrauterine gestation is present. Presentation: Vertex. Placenta: Placental position is anterior , without previa. Amniotic fluid index: 18.9 cm, normal range is 5-24 cm. Single deepest vertical pocket is 5.4 cm. heart rate: 145 beats per minute. Maternal cervical canal: Not well seen biometrics: Estimated gestational age: 35 weeks 1 day Biophysical profile: Tone: 2 points. Movement: 2 points. Respiration: 0 points. Largest pocket of fluid: 2 points. IMPRESSION: Single live intrauterine with ultrasound gestational age of 35 weeks 1 day. BPP 6/8. We strive to produce accurate, complete, and clear reports of imaging services. To assist us in improving patient care, this report was composed using standard report templates and voice recognition software. Therefore, it may contain abnormal punctuation, insertions and/or omissions. Occasional wrong-word or sound-alike substitutions may occur. Though we review the report and make efforts to correct it, we do recommend that the report be read carefully in proper context to recognize any text inaccuracies. Dictated by: Gregoria Ordonez M.D. on 09/15/2023 at 10:48 Approved by: Gregoria Ordonez M.D. on 09/15/2023 at 10:51
== END 2023-09-15 10:30 | disposition home or self-care (01) ==
LOC: LABOR 09:45 → OB 09-17 08:01
PROVIDERS: Family Provider Family Medicine; PCP Family Medicine; Referring Provider Family Medicine; Visit Provider Family Medicine
DX: O10.913 Unspecified pre-existing hypertension complicating pregnancy, third trimester (principal); Z3A.35 35 weeks gestation of pregnancy; Z34.80 Encounter for supervision of other normal pregnancy, unspecified trimester
CPT/HCPCS: 59025; 76819; 87653; G0378; G0379

== ENCOUNTER → 2023-09-15 11:08 | Outpatient (CLI) | payer OTHER, MEDICAID, SELFPAY ==
[2023-09-16 09:59] LABS: Strep Grp B PCR NEG for Grp B Strep
== END ==
PROVIDERS: Family Provider Family Medicine; PCP Family Medicine; Visit Provider Family Medicine
DX: Z34.80 Encounter for supervision of other normal pregnancy, unspecified trimester (principal)
CPT/HCPCS: 87653

== ENCOUNTER 2023-09-18 13:58 | Outpatient (CLI) | payer OTHER, MEDICAID, SELFPAY ==
--- NOTE | 2023-09-18 14:39 | P.TNLD_ITS ---
Visit Information Visit Information Date of evaluation: 09/18/23 Primary OB Provider: Marianela Roe Comments/Additional reasons for admission: 33yo at 35w1d here for NST for chronic HTN [facility] Medical History (Updated 06/12/23 @ 09:11 by Marianela Roe MD) Normal spontaneous vaginal delivery (~11/22/21) Seasonal allergic rhinitis Eczema Depression Gastrointestinal distress History of fibromyalgia (~2018) Anxiety (spontaneous vaginal delivery) (~06/11/17) (spontaneous vaginal delivery) (~01/14/19) Pre-eclampsia (~2016) Asthma Surgical History S/P tympanostomy tube placement Family History (Updated 02/10/23 @ 11:25 by Ibeth Apodaca RN) Father Hypertension Mother Adopted Schizophrenia Grandfather Family estrangement Grandmother No problems noted. Grandfather Aneurysm Grandmother Cancer CVA (cerebral vascular accident) Brother No problems noted. Sister No problems noted. 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 history: recent ([place]) seatbelt use: always water heater temp set < 120 deg: Yes working smoke detector in home: Yes fire extinguisher in home: No carbon monox detector in home: No firearms in home: No do you feel safe at home: Yes Smoking Status: Never smoker Tobacco: How many years used: 2 (never habitual, only when drinking) second hand exposure: Yes ( vapes MJ) alcohol intake: former (1-2 beers/night when not ) substance use type: does not use and marijuana (uses CBD products for nerve pain) during the past year weight has: other (back to pre-baby weight (youngest 15 months old)) well-balanced diet: daily or most days daily servings fruits/ve-4 caffeine: Yes (AM small cup coffee) Type(s) of exercise: none Evaluation Evaluation Baseline heart rate: 135 Variability: Moderate (11-25) monitor accelerations: Present Monitor Decelerations: Absent Category of Tracing: Reactive Diagnosis, Plan/Disposition Plan/Disposition Plan: 33yo at 35w1d here for NST for chronic HTN. NST reactive. Stable for d/c home. Continue testing. OB Disposition: home
== END 2023-09-18 14:38 | disposition home or self-care (01) ==
LOC: LABOR 14:24 → OB 09-21 06:49
PROVIDERS: Family Provider Family Medicine; PCP Family Medicine; Referring Provider Family Medicine; Visit Provider Family Medicine
DX: O10.913 Unspecified pre-existing hypertension complicating pregnancy, third trimester (principal); Z3A.35 35 weeks gestation of pregnancy
CPT/HCPCS: 59025; G0378; G0379

== ENCOUNTER 2023-09-21 10:22 | Outpatient (CLI) | payer OTHER, MEDICAID, SELFPAY | END 2023-09-21 11:10 | disposition home or self-care (01) | LOC: LABOR 11:16 → OB 09-25 10:25 | PROVIDERS: Family Provider Family Medicine; PCP Family Medicine; Referring Provider Family Medicine; Visit Provider Family Medicine | DX: O10.913 Unspecified pre-existing hypertension complicating pregnancy, third trimester (principal); Z3A.36 36 weeks gestation of pregnancy | CPT/HCPCS: 59025; G0378; G0379 ==

== ENCOUNTER 2023-09-22 15:12 | Outpatient (CLI) | payer OTHER, MEDICAID, SELFPAY ==
[2023-09-22 16:15] LABS: Add Manual Diff / Slide Review NO; Basophils Absolute Auto 0 /uL (0-100); Basophils Percent Auto 0.4 % (0-2); Eosinophils Absolute Auto 100 /uL (0-450); Eosinophils Percent Auto 1.5 % (2-4); Hematocrit 33.9 % (36-46); Hemoglobin 11.5 g/dL (12.0-16.0); Lymphocytes Absolute Auto 1300 /uL (1100-4500); Lymphocytes Percent Auto 16.4 % (25-40); Mean Corpuscular Hemoglobin 28.7 PG (26-34); Mean Corpuscular Volume 84.2 fL (80-100); Monocytes Absolute Auto 500 /uL (0-900); Monocytes Percent Auto 6.6 % (3-14); Neutrophils Absolute Auto 6100 /uL (1500-7000); Neutrophils Percent Auto 75.1 % (50-75); Platelet Count 244 X10^3/uL (150-400); Red Blood Cell Count 4.03 X10^6/uL (4.0-5.2); Red Cell Distribution Width 13.5 % (11.6-14.8); White Blood Cell Count 8.1 X10^3/uL (4.5-11.0)
[2023-09-22 17:19] LABS: Alanine Aminotransferase 16 IU/L (<35); Albumin 3.7 g/dL (3.5-5.0); Albumin Globulin Ratio 1.1 (1.0-2.8); Alkaline Phosphatase 141 U/L (38-126); Aspartate Aminotransferase 24 IU/L (14-36); BUN Creatinine Ratio 18.8 (6-22); Bilirubin Total 0.5 mg/dL (0.2-1.3); Blood Urea Nitrogen 9 mg/dL (7-17); Calcium 9.8 mg/dL (8.4-10.2); Carbon Dioxide 22 mmol/L (22-32); Chloride 102 mmol/L (98-107); Estimated Glomerular Filt Rate > 60 mL/min (>60); Globulin 3.4 g/dL (1.7-4.1); Glucose 105 mg/dL (70-100); HEMOLYSIS < 15 (0-50); Potassium 3.7 mmol/L (3.4-5.1); Sodium 132 mmol/L (137-145); Total Protein 7.1 g/dL (6.3-8.2)
[2023-09-22 18:15] LABS: Creatinine Urine Random 126.5 mg/dL; Protein (Total) Urine Random 7 mg/dL (0-12); Protein Creatinine Ratio Urine 0.05 GRAM/24H
[2023-09-24 20:08] LABS: Hemoglobin A1C% w Est Avg Glu 5.4 % (4.0-6.0)
== END 2023-09-22 16:50 | disposition home or self-care (01) ==
LOC: OB 09-25 10:27
PROVIDERS: Family Provider Family Medicine; PCP Family Medicine; Referring Provider Family Medicine; Visit Provider Family Medicine
DX: O10.913 Unspecified pre-existing hypertension complicating pregnancy, third trimester (principal); Z3A.36 36 weeks gestation of pregnancy
CPT/HCPCS: 59025; 80053; 82570; 83036; 84156; 85025; G0378; G0379

== ENCOUNTER 2023-09-25 08:53 | Outpatient (CLI) | payer OTHER, MEDICAID, SELFPAY | END 2023-09-25 09:50 | disposition home or self-care (01) | LOC: LABOR 09:31 → OB 09-28 06:06 | PROVIDERS: Family Provider Family Medicine; PCP Family Medicine; Referring Provider Family Medicine; Visit Provider Family Medicine | DX: O10.913 Unspecified pre-existing hypertension complicating pregnancy, third trimester (principal); O47.03 False labor before 37 completed weeks of gestation, third trimester; Z3A.36 36 weeks gestation of pregnancy; O09.299 Supervision of pregnancy with other poor reproductive or obstetric history, unspecified trimester; O16.9 Unspecified maternal hypertension, unspecified trimester | CPT/HCPCS: 59025; 76819; G0378; G0379 ==

== ENCOUNTER → 2023-09-25 10:55 | Outpatient (CLI) | payer OTHER, MEDICAID, SELFPAY ==
--- NOTE | 2023-09-25 10:56 | DI.US.S_ITS ---
PROCEDURE: US OB BIOPHYSICAL PROFILE INDICATIONS: BPP OUTSIDE/PRIOR DATING DATA: Last menstrual period (LMP): Unknown. LMP-based estimated date of delivery (NADIA): Not available First dating scan (date and location): Outside study. Estimated date of delivery (NADIA) from first dating scan: October 19, 2023 TECHNIQUE: Real-time scanning was performed of the fetus, with image documentation and biometric measurements. Biophysical profile was also obtained. Endovaginal scanning: Not performed COMPARISON: [facility], OB BIOPHYSICAL PROFILE, 09/15/2023, 9:55. FINDINGS: General: A single living intrauterine gestation is present. Presentation: Vertex. Placenta: Placental position is anterior , without previa. Amniotic fluid index: 13.1 cm, normal range is 5-24 cm. Single deepest vertical pocket is 5.6 cm. heart rate: 158 beats per minute. Maternal cervical canal: 4.4 cm long. Normal lower limit is 2.5 cm. Biophysical profile: Tone: 2 points. Movement: 2 points. Respiration: 0 points. Largest pocket of fluid: 2 points. Umbilical artery Doppler: 2.2, 2.1, 2.3 IMPRESSION: 1. Single live intrauterine gestation in vertex position. 2. 6/8 biophysical profile. 3. Normal umbilical artery Doppler ratios. We strive to produce accurate, complete, and clear reports of imaging services. To assist us in improving patient care, this report was composed using standard report templates and voice recognition software. Therefore, it may contain abnormal punctuation, insertions and/or omissions. Occasional wrong-word or sound-alike substitutions may occur. Though we review the report and make efforts to correct it, we do recommend that the report be read carefully in proper context to recognize any text inaccuracies. Dictated by: Naima Shipley M.D. on 09/25/2023 at 13:12 Approved by: Naima Shipley M.D. on 09/25/2023 at 13:14
== END ==
LOC: US 10:56
PROVIDERS: Family Provider Family Medicine; PCP Family Medicine; Referring Provider Family Medicine; Visit Provider Family Medicine
DX: O09.299 Supervision of pregnancy with other poor reproductive or obstetric history, unspecified trimester (principal); O16.9 Unspecified maternal hypertension, unspecified trimester
CPT/HCPCS: 76819

== ENCOUNTER 2023-09-28 13:03 | Outpatient (CLI) | payer OTHER, MEDICAID, SELFPAY ==
--- NOTE | 2023-09-28 13:25 | PM.OBTRLD ---
Visit Information Visit Information Date of evaluation: 09/28/23 Primary OB Provider: Marianela Roe Comments/Additional reasons for admission: 33yo at 37w0d here for NST for chronic HTN. [facility] Medical History (Updated 06/12/23 @ 09:11 by Marianela Roe MD) Normal spontaneous vaginal delivery (~11/22/21) Seasonal allergic rhinitis Eczema Depression Gastrointestinal distress History of fibromyalgia (~2018) Anxiety (spontaneous vaginal delivery) (~06/11/17) (spontaneous vaginal delivery) (~01/14/19) Pre-eclampsia (~2016) Asthma Surgical History S/P tympanostomy tube placement Family History (Updated 02/10/23 @ 11:25 by Ibeth Apodaca RN) Father Hypertension Mother Adopted Schizophrenia Grandfather Family estrangement Grandmother No problems noted. Grandfather Aneurysm Grandmother Cancer CVA (cerebral vascular accident) Brother No problems noted. Sister No problems noted. 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 travel history: recent ([place]) seatbelt use: always water heater temp set < 120 deg: Yes working smoke detector in home: Yes fire extinguisher in home: No carbon monox detector in home: No firearms in home: No do you feel safe at home: Yes Smoking Status: Never smoker Tobacco: How many years used: 2 (never habitual, only when drinking) second hand exposure: Yes ( vapes MJ) alcohol intake: former (1-2 beers/night when not ) substance use type: does not use and marijuana (uses CBD products for nerve pain) during the past year weight has: other (back to pre-baby weight (youngest 15 months old)) well-balanced diet: daily or most days daily servings fruits/ve-4 caffeine: Yes (AM small cup coffee) Type(s) of exercise: none Evaluation Evaluation Baseline heart rate: 150 Variability: Moderate (11-25) monitor accelerations: Present Monitor Decelerations: Absent Category of Tracing: Reactive Diagnosis, Plan/Disposition Final Diagnosis (1) Chronic hypertension affecting : Status: Acute Plan/Disposition Plan: 33yo at 37w0d here for NST for chronic HTN. NST reactive. OB Disposition: home
== END 2023-09-28 13:33 | disposition home or self-care (01) ==
LOC: LABOR 13:06 → OB 09-29 10:55
PROVIDERS: Family Provider Family Medicine; PCP Family Medicine; Referring Provider Family Medicine; Visit Provider Family Medicine
DX: O10.913 Unspecified pre-existing hypertension complicating pregnancy, third trimester (principal); Z3A.37 37 weeks gestation of pregnancy
CPT/HCPCS: 59025; G0378; G0379

== ENCOUNTER → 2023-09-30 10:21 | Outpatient (CLI) | payer OTHER, MEDICAID, SELFPAY ==
--- NOTE | 2023-09-30 10:23 | DI.US.S_ITS ---
PROCEDURE: US OB BIOPHYSICAL PROFILE INDICATIONS: HTN OUTSIDE/PRIOR DATING DATA: First dating scan (date and location): Outside study. The calculations are made using the 1st dating scan NADIA of 10/19/2023. TECHNIQUE: Real-time scanning was performed of the fetus, with image documentation and biometric measurements. Biophysical profile was also obtained. Endovaginal scanning: Not performed COMPARISON: [facility], , OB BIOPHYSICAL PROFILE, 09/25/2023, 11:31. FINDINGS: General: A single living intrauterine gestation is present. Presentation: Vertex. Placenta: Placental position is anterior , without previa. Amniotic fluid index: 20.4 cm, normal range is 5-24 cm. Single deepest vertical pocket is 6.1 cm. heart rate: 143 beats per minute. Clinically estimated gestational age: 37 weeks, 2 day Biophysical profile: Tone: 2 points. Movement: 2 points. Respiration: 2 points. Largest pocket of fluid: 2 points. IMPRESSION: 1. Single live intrauterine consistent with 37 weeks and 2 days. 2. Normal biophysical profile. 3. Low-level echoes are seen within the amniotic fluid, nonspecific. Attention on follow-up exam. We strive to produce accurate, complete, and clear reports of imaging services. To assist us in improving patient care, this report was composed using standard report templates and voice recognition software. Therefore, it may contain abnormal punctuation, insertions and/or omissions. Occasional wrong-word or sound-alike substitutions may occur. Though we review the report and make efforts to correct it, we do recommend that the report be read carefully in proper context to recognize any text inaccuracies. Dictated by: Adryan Fregoso M.D. on 09/30/2023 at 11:45 Approved by: Adryan Fregoso M.D. on 09/30/2023 at 11:54
== END ==
PROVIDERS: Family Provider Family Medicine; PCP Family Medicine; Referring Provider Family Medicine; Visit Provider Family Medicine
DX: O09.293 Supervision of pregnancy with other poor reproductive or obstetric history, third trimester; Z3A.37 37 weeks gestation of pregnancy; O10.913 Unspecified pre-existing hypertension complicating pregnancy, third trimester
CPT/HCPCS: 76819

== ENCOUNTER 2023-10-02 10:48 | Observation (INO) | payer OTHER, MEDICAID, SELFPAY ==
--- NOTE | 2023-10-02 13:51 | PM.OBTRLD ---
Visit Information Visit Information Date of evaluation: 10/02/23 Primary OB Provider: Marianela Roe Comments/Additional reasons for admission: 33yo at 37w4d here for NST for chronic HTN. Pt is feeling her baby move regularly. No headache, vision changes, RUQ pain, acute worsening swelling. [facility] Medical History (Updated 06/12/23 @ 09:11 by Marianela Roe MD) Normal spontaneous vaginal delivery (~11/22/21) Seasonal allergic rhinitis Eczema Depression Gastrointestinal distress History of fibromyalgia (~2018) Anxiety (spontaneous vaginal delivery) (~06/11/17) (spontaneous vaginal delivery) (~01/14/19) Pre-eclampsia (~2016) Asthma Surgical History S/P tympanostomy tube placement Family History (Updated 02/10/23 @ 11:25 by Ibeth Apodaca RN) Father Hypertension Mother Adopted Schizophrenia Grandfather Family estrangement Grandmother No problems noted. Grandfather Aneurysm Grandmother Cancer CVA (cerebral vascular accident) Brother No problems noted. Sister No problems noted. 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 travel history: recent ([place]) seatbelt use: always water heater temp set < 120 deg: Yes working smoke detector in home: Yes fire extinguisher in home: No carbon monox detector in home: No firearms in home: No do you feel safe at home: Yes Smoking Status: Never smoker Tobacco: How many years used: 2 (never habitual, only when drinking) second hand exposure: Yes ( vapes MJ) alcohol intake: former (1-2 beers/night when not ) substance use type: does not use and marijuana (uses CBD products for nerve pain) during the past year weight has: other (back to pre-baby weight (youngest 15 months old)) well-balanced diet: daily or most days daily servings fruits/ve-4 caffeine: Yes (AM small cup coffee) Type(s) of exercise: none Objective Labs 10/02/23 13:53 10/02/23 13:53 Evaluation Evaluation Baseline heart rate: 150 Variability: Moderate (11-25) monitor accelerations: Present Monitor Decelerations: Absent Category of Tracing: Reactive Diagnosis, Plan/Disposition Final Diagnosis (1) Chronic hypertension affecting : Status: Acute Plan/Disposition Plan: 33yo at 37w4d here for NST for chronic HTN. NST initially with brief decel, reassuring on prolonged monitoring after. Labs stable. Okay for d/c home - continue plans for IOL on 10/05. OB Disposition: home
[2023-10-02 14:02] LABS: Add Manual Diff / Slide Review NO; Basophils Absolute Auto 0 /uL (0-100); Basophils Percent Auto 0.6 % (0-2); Eosinophils Absolute Auto 100 /uL (0-450); Eosinophils Percent Auto 1.5 % (2-4); Hematocrit 34.4 % (36-46); Hemoglobin 11.4 g/dL (12.0-16.0); Lymphocytes Absolute Auto 900 /uL (1100-4500); Lymphocytes Percent Auto 11.7 % (25-40); Mean Corpuscular HGB Conc 33.2 % (30-36); Mean Corpuscular Hemoglobin 27.4 PG (26-34); Mean Corpuscular Volume 82.4 fL (80-100); Monocytes Absolute Auto 600 /uL (0-900); Monocytes Percent Auto 8.5 % (3-14); Neutrophils Absolute Auto 5700 /uL (1500-7000); Neutrophils Percent Auto 77.7 % (50-75); Platelet Count 210 X10^3/uL (150-400); Red Blood Cell Count 4.17 X10^6/uL (4.0-5.2); Red Cell Distribution Width 13.2 % (11.6-14.8); White Blood Cell Count 7.3 X10^3/uL (4.5-11.0)
[2023-10-02 14:14] LABS: Alanine Aminotransferase 15 IU/L (<35); Albumin 3.8 g/dL (3.5-5.0); Albumin Globulin Ratio 1.1 (1.0-2.8); Alkaline Phosphatase 170 U/L (38-126); Aspartate Aminotransferase 24 IU/L (14-36); BUN Creatinine Ratio 13.5 (6-22); Bilirubin Total 0.5 mg/dL (0.2-1.3); Blood Urea Nitrogen 7 mg/dL (7-17); Calcium 9.2 mg/dL (8.4-10.2); Carbon Dioxide 24 mmol/L (22-32); Chloride 102 mmol/L (98-107); Estimated Glomerular Filt Rate > 60 mL/min (>60); Globulin 3.5 g/dL (1.7-4.1); Glucose 83 mg/dL (70-100); HEMOLYSIS < 15 (0-50); Potassium 3.7 mmol/L (3.4-5.1); Sodium 133 mmol/L (137-145); Total Protein 7.3 g/dL (6.3-8.2)
[2023-10-02 14:21] LABS: Creatinine Urine Random 64.4 mg/dL; Protein (Total) Urine Random 7 mg/dL (0-12)
== END 2023-10-02 13:58 | disposition home or self-care (01) ==
PROVIDERS: Admitting Provider Family Medicine; Family Provider Family Medicine; PCP Family Medicine; Referring Provider Family Medicine; Visit Provider Family Medicine
DX: O10.913 Unspecified pre-existing hypertension complicating pregnancy, third trimester (principal); Z3A.37 37 weeks gestation of pregnancy
CPT/HCPCS: 36415; 59025; 59050; 76815; 80053; 82570; 84156; 85025; G0378; G0379

== ENCOUNTER → 2023-10-06 10:37 | Outpatient (CLI) | payer OTHER, MEDICAID, SELFPAY ==
--- NOTE | 2023-10-06 10:37 | DI.US.S_ITS ---
PROCEDURE: US OB BIOPHYSICAL PROFILE INDICATIONS: BIOPHYSICAL PROFILE OUTSIDE/PRIOR DATING DATA: Estimated date of delivery (NADIA) from first dating scan: 10/19/2023 TECHNIQUE: Real-time scanning was performed of the fetus for biophysical profile, with image documentation. Color and pulse Doppler interrogation was also performed of the umbilical artery near its insertion into the placenta. Endovaginal scanning: No COMPARISON: [facility], , OB BIOPHYSICAL PROFILE, 09/30/2023, 10:28. FINDINGS: General: A single living intrauterine gestation is present. Presentation: Vertex. Placenta: Placental position is right anterior. Amniotic fluid index: 18.2 cm, normal range is 5-24 cm. Single deepest vertical pocket is 5.4 cm. heart rate: 144 beats per minute. Estimated gestational age from initial scan: 38 weeks 1 day. Biophysical profile: Tone: 0 points. Movement: 0 points. Respiration: 2 points. Largest pocket of fluid: 2 points. Umbilical artery Doppler: 2.1, 2.4, 2.6 Survey of anatomy includes normal chest/diaphragm and renal regions. There is a possible single nuchal cord. Prominent intra-abdominal umbilical veins are seen. IMPRESSION: 1. Single living intrauterine gestation. 2. Biophysical profile score is 4/8. 3. Probable nuchal cord. We strive to produce accurate, complete, and clear reports of imaging services. To assist us in improving patient care, this report was composed using standard report templates and voice recognition software. Therefore, it may contain abnormal punctuation, insertions and/or omissions. Occasional wrong-word or sound-alike substitutions may occur. Though we review the report and make efforts to correct it, we do recommend that the report be read carefully in proper context to recognize any text inaccuracies. Dictated by: Hernan Kelly M.D. on 10/06/2023 at 11:51 Approved by: Hernan Kelly M.D. on 10/06/2023 at 11:54
== END ==
LOC: US 10:37
PROVIDERS: Family Provider Family Medicine; PCP Family Medicine; Referring Provider Family Medicine; Visit Provider Family Medicine
DX: O10.913 Unspecified pre-existing hypertension complicating pregnancy, third trimester (principal); O09.293 Supervision of pregnancy with other poor reproductive or obstetric history, third trimester
CPT/HCPCS: 76819; 76820

== ENCOUNTER 2023-10-06 12:03 | Inpatient (IN) | payer OTHER, MEDICAID, SELFPAY ==
[2023-10-06 12:34] VITALS: BP 126/88
[2023-10-06] MEDS: LACTATED RINGERS 1,000 ML 100 ML IV ×2 (13:37→19:20)
[2023-10-06] MEDS: OXYTOCIN PREMIX 30 UNIT/500 ML PLAST..BAG IV (13:39)
[2023-10-06 13:51] LABS: Add Manual Diff / Slide Review NO; Basophils Absolute Auto 0 /uL (0-100); Basophils Percent Auto 0.4 % (0-2); Eosinophils Absolute Auto 100 /uL (0-450); Eosinophils Percent Auto 2.1 % (2-4); Hematocrit 34.1 % (36-46); Hemoglobin 11.4 g/dL (12.0-16.0); Lymphocytes Absolute Auto 1400 /uL (1100-4500); Lymphocytes Percent Auto 22.7 % (25-40); Mean Corpuscular HGB Conc 33.6 % (30-36); Mean Corpuscular Hemoglobin 27.9 PG (26-34); Monocytes Absolute Auto 400 /uL (0-900); Monocytes Percent Auto 6.4 % (3-14); Neutrophils Absolute Auto 4200 /uL (1500-7000); Neutrophils Percent Auto 68.4 % (50-75); Platelet Count 195 X10^3/uL (150-400); Red Blood Cell Count 4.11 X10^6/uL (4.0-5.2); Red Cell Distribution Width 13.2 % (11.6-14.8); White Blood Cell Count 6.1 X10^3/uL (4.5-11.0)
[2023-10-06 14:52] VITALS: BP 120/86; PULSE 94
[2023-10-06] MEDS: DULOXETINE 30 MG CAPSULE PO (14:52)
[2023-10-06] MEDS: LABETALOL 100 MG TABLET 200 MG PO ×2 (14:52→20:48)
--- NOTE | 2023-10-06 14:55 | P.HPOB_ITS ---
OB HPI Date/Time Date of admission: 10/06/23 Date Patient Seen: 10/06/23 History of Present Condition Chief complaint: rule out labor NADIA Calculator 2 Estimated Delivery Date Method Current WG Current Estimate 10/19/23 Manual 38w 1d Other Estimates 09/28/23 LMP (Certain) 41w 1d 10/19/23 Ultrasound #1 38w 1d Estimated Gestational Age (weeks): 38w1d : 4 Para: 3 Narrative: 33yo at 38w1d here due to 4/8 BPP on monitoring for chronic HTN today. Pt denies any vaginal bleeding, LOF, contractions. She has not felt her baby move as frequently today. Pts complicated by chronic HTN with BP elevation < 20 weeks. She was on an 81mg Aspirin starting at 12wks due to her hx of pre-eclampsia. She was initiated on Labetalol at 34wks, titrated up to 200mg BID prior to delivery. The pt was also noted to have placental lakes, with reassuring growth scans. The pt has anxiety/depression and fibromyalgia, controlled with Duloxetine. care: good care, initiated at week # (6) and pounds weight gain (22) Dating criteria OB: based on 1st trimester US only Ultrasounds: normal 1st trimester US and abnormal US findings (placental lakes) Indications Indication for induction OB: other (chronic HTN) Preadmission Labs Last OB Lab Results: 2 Blood Type A Positive 10/06/23 12:05 Antibody Screen Negative 10/06/23 12:05 Hematocrit 34.1 % (36-46) L 10/06/23 12:05 Hemoglobin 11.4 g/dL (12.0-16.0) L 10/06/23 12:05 Hepatitis B Surface Antigen Negative s/c (NEGATIVE) 02/18/23 08 :15 Hepatitis C Antibody Negative s/c (NEGATIVE) 02/18/23 08:15 Rubella Antibody 12.0 IU/mL (>15) L 02/18/23 08:15 Varicella-Zoster IgG Antibody 642 index (Immune >165) 02/18/23 08:15 Glucose 1 Hour 109 mg/dL (76-139) 07/21/23 11:01 Group B Streptococcus (PCR) Neg for grp b strep 09/15/23 11:08 Prior (ies) Past Pregnancies Del. Date GA/Weeks Labor Lgth Wt Sex Route Outcome Anesthesia Place Delv Breastfeed Preg Comp Name 06/11/17 39.5 16 7 lb 12 oz Male vaginal live - full te rm epidural [facility] Roe 6 months pre-eclampsia Renesarahmicaela 01/14/19 40.5 1 7 lb 12.2 oz Female vaginal live - full term none [facility] 12 months induced hyper- post-dates induction Alix 11/22/21 39 3 7 lb 6.097 oz Male vaginal live - full term epidural [facility] still going as of 02/10/22 labor [place] Delivery Date: 06/11/17 Last Updated by: Maritza Matthew R.N. *Failed Induction initially at 38 weeks. *[facility]. *Tough period PP : Jaundiced, Nursing issues, Lip-tied, back to work at 7 wga. Delivery Date: 01/14/19 Last Updated by: Maritza Matthew R.N. *Induction. *In Labor for 20 mins! *2nd Tear with Repair. *Alix has a lip tie. Evaluation Evaluation Baseline heart rate: 150 Variability: Moderate (11-25) monitor accelerations: Absent Monitor Decelerations: Absent Contraction Frequency (minutes): 4 Uterine Contraction Intensity: Mild Status: Category l Dilation (cm): 0 Effacement (%): 50 Dilation: Closed Effacement: 40-50% station: -4 Position of cervix: posterior Consistency: medium Li score: 2 PFSH Medical History (Updated 06/12/23 @ 09:11 by Marianela Roe MD) Normal spontaneous vaginal delivery (~11/22/21) Seasonal allergic rhinitis Eczema Depression Gastrointestinal distress History of fibromyalgia (~2018) Anxiety (spontaneous vaginal delivery) (~06/11/17) (spontaneous vaginal delivery) (~01/14/19) Pre-eclampsia (~2016) Asthma Surgical History S/P tympanostomy tube placement Family History (Updated 02/10/23 @ 11:25 by Ibeth Apodaca RN) Father Hypertension Mother Adopted Schizophrenia Grandfather Family estrangement Grandmother No problems noted. Grandfather Aneurysm Grandmother Cancer CVA (cerebral vascular accident) Brother No problems noted. Sister No problems noted. 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 travel history: recent ([place]) seatbelt use: always water heater temp set < 120 deg: Yes working smoke detector in home: Yes fire extinguisher in home: No carbon monox detector in home: No firearms in home: No do you feel safe at home: Yes Smoking Status: Never smoker Tobacco: How many years used: 2 (never habitual, only when drinking) second hand exposure: Yes ( vapes MJ) alcohol intake: former (1-2 beers/night when not ) substance use type: does not use and marijuana (uses CBD products for nerve pain) during the past year weight has: other (back to pre-baby weight (youngest 15 months old)) well-balanced diet: daily or most days daily servings fruits/ve-4 caffeine: Yes (AM small cup coffee) Type(s) of exercise: none Meds Home Medications and Allergies Home Medications Medication Instructions Recorded Confirmed Type acyclovir 400 mg tablet 400 mg PO 5XD #25 tabs 12/15/16 09/25/23 Rx prenat.vits,tobias,yqa-pqoh-ofemr 1 tab PO DAILY 04/24/21 09/25/23 History ProAir HFA 90 mcg/actuation See Rx Instructions .Route 05/16/21 09/25/23 Rx aerosol inhaler (albuterol sulfate) .COMPLEX ##9 sertraline 50 mg tablet 50 mg PO DAILY #90 tabs 04/09/23 09/25/23 Rx fluticasone propionate 110 1 puff inhalation BID #12 grams 06/05/23 09/25/23 Rx mcg/actuation HFA aerosol inhaler (Flovent HFA) duloxetine 30 mg capsule,delayed 30 mg PO DAILY #90 caps 09/01/23 09/25/23 Rx release montelukast 10 mg tablet 10 mg PO DAILY #30 tabs 09/01/23 09/25/23 Rx ondansetron 4 mg disintegrating 4 mg PO Q8H PRN nausea and 09/01/23 09/25/23 Rx tablet vomiting #20 tabs labetalol 200 mg tablet 200 mg PO BID #60 tabs 10/04/23 Rx Allergies Allergy/AdvReac Type Severity Reaction Status Date / Time No Known Drug Allergies Allergy Verified 09/25/23 10:06 OB Exam Resp Effort & Inspection: normal respiratory effort Auscultation: clear to auscultation bilaterally Cardio Rate: regular rate Rhythm: regular rhythm Heart Sounds: S1 normal, S2 normal and no murmurs GI Inspection: non-distended Palpation: Yes soft and No tender Presentation: vertex Objective Labs 10/06/23 12:05 Labs: Laboratory Results - last 24 hr 10/06/23 12:05 WBC 6.1 RBC 4.11 Hgb 11.4 L Hct 34.1 L MCV 83.0 MCH 27.9 MCHC 33.6 RDW 13.2 Plt Count 195 Neut % (Auto) 68.4 Lymph % (Auto) 22.7 L Bollinger % (Auto) 6.4 Eos % (Auto) 2.1 Baso % (Auto) 0.4 Neut # (Auto) 4200 Lymph # (Auto) 1400 [place]linger # (Auto) 400 Eos # (Auto) 100 Baso # (Auto) 0 Blood Type A Positive Antibody Screen Negative Assessment and Plan Assessment and Plan Assessment and Plan narrative: 33yo at 38w1d here due to 4/8 BPP at screening for chronic HTN today, on 200mg PO Labetalol. Points off for movement and tone. NST initially nonreactive with minimal variability. Variability then intermittently moderate. 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 With contractions every 2-3 minutes, noted to have no significant decelerations. After discussion with pt regarding risks vs benefits, pt is in agreement with trial for induction of labor. Pts also complicated by placental lakes, anxiety/depression and fibromyalgia on Duloxetine. GBS negative, Rh positive. - FHT currently reassuring, continuous monitoring. Discussed that with baby likely with limited reserves, will not tolerate prolonged Category II tracing and would proceed with primary - GBS negative, no prophylaxis indicated - Place Cervidil - Epidural for pain control when desired
[2023-10-06] MEDS: DINOPROSTONE VAG (CERVIDIL) 10 MG VAG (16:08)
[2023-10-06 20:48] VITALS: BP 107/74; PULSE 97
[2023-10-07] MEDS: LACTATED RINGERS 1,000 ML 100 ML IV ×2 (04:33→08:46)
--- NOTE | 2023-10-07 05:41 | P.PNOB_ITS ---
Date/Time Date Patient Seen: 10/07/23 Time Patient Seen: 05:41 Pain Control Pain control: tolerating well Pelvic Exam Dilation (cm): 0 Effacement (%): 50 station: -3 Amniotic membrane status: Intact Contractions Monitor mode: External Contraction intensity: Mild Status status: Category l Heart Rate Baseline: 140 Monitor Accelerations: Present Monitor Decelerations: Absent Monitor Variability: Moderate Assessment and Plan Comments: 33yo at 38w1d here due to 4/8 BPP at screening for chronic HTN today, on 200mg PO Labetalol. Points off for movement and tone. NST initially nonreactive with minimal variability. Variability then intermittently moderate. 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 With contractions every 2-3 minutes, noted to have no significant decelerations. After discussion with pt regarding risks vs benefits, pt is in agreement with trial for induction of labor. Pts also complicated by placental lakes, anxiety/depression and fibromyalgia on Duloxetine. GBS negative, Rh positive. Received cervidil for 12hrs without significant cervical change, does have minimal descent. Pt had 2 late decels, making the use of misoprostol not ideal. After discussion with the pt, merino catheter was inserted and inflated with 60cc of NS. Will plan to leave this in for 12 hrs or until it falls out. Continuous monitoring while in place. Of note, pt has felt numerous kicks overnight.
[2023-10-07] MEDS: fentaNYL 100 MCG/2 ML INJ 50 MCG IV (06:53)
--- NOTE | 2023-10-07 08:58 | PM.AN.REGBLK ---
Regional Block Pre-procedure PMH/ROS narrative: Asthma Covid +, chronic [id number]- previous vaginal deliveries x3 Labs: Hct 34.1 % (36-46) L 10/06/23 12:05 Plt Count 195 X10^3/uL (150-400) 10/06/23 12:05 Medications: Current Medications Generic Name Dose Route Start Last Admin Trade Name Freq PRN Reason Stop Dose Admin Albuterol 2.5 mg 10/07/23 11:00 Albuterol 2.5 Mg/3 Ml Neb (Adult) INH [id number] ROSETTA Carboprost Tromethamine 250 mcg 10/06/23 13:21 Carboprost 250 Mcg/Ml Ampul IM Q90M PRN Bleeding Duloxetine HCl 30 mg 10/07/23 09:00 10/06/23 14:52 Duloxetine 30 Mg Capsule PO 30 mg DAILY ROSETTA Administration Fentanyl 50 mcg 10/06/23 13:21 10/07/23 06:53 Fentanyl 100 Mcg/2 Ml Inj IV 50 mcg Q1H PRN Administration Pain, Moderate (4-6) Oxytocin/Lactated Ringer's 30 unit in 500 mls @ 200 mls/hr 10/06/23 13:21 Oxytocin Premix IV CONT PRN Bleeding Protocol Tranexamic Acid 1,000 mg/ 100 mls @ 200 mls/hr 10/06/23 13:21 Sodium Chloride IV NOW PRN Bleeding Oxytocin/Lactated Ringer's 30 unit in 500 mls @ 2 mls/hr 10/06/23 13:30 10/06/23 13:39 Oxytocin Premix IV 2 milliunit/min TITRATE ROSETTA 2 mls/hr Administration Protocol 2 MILLIUNIT/MIN Lactated Ringer's 1,000 mls @ 100 mls/hr 10/06/23 13:30 10/07/23 08:46 Lactated Ringers IV 100 mls/hr CONT ROSETTA Administration Labetalol HCl 200 mg 10/06/23 21:00 10/06/23 20:48 Labetalol 100 Mg Tablet PO 200 mg BID ROSETTA Administration Lidocaine HCl 20 ml 10/06/23 13:21 Lidocaine 1% 20 Ml INJ INTRA-OP PRN Post Delivery Misoprostol 800 mcg 10/06/23 13:21 Misoprostol 200 Mcg Tablet HI NOW PRN Bleeding Misoprostol 400 mcg 10/06/23 13:21 Misoprostol 200 Mcg Tablet SL NOW PRN Bleeding Montelukast Sodium 10 mg 10/07/23 09:00 Montelukast 10 Mg Tablet PO DAILY ROSETTA Naloxone HCl 0.2 mg 10/06/23 13:21 Naloxone 0.4 Mg/Ml Vial IV Q2MIN PRN Opiate Reversal Oxytocin 10 unit 10/06/23 13:21 Oxytocin 10 Unit/Ml Vial IM NOW PRN Bleeding Allergies: Allergies Allergy/AdvReac Type Severity Reaction Status Date / Time No Known Drug Allergies Allergy Verified 09/25/23 10:06 Procedure Insertion date: 10/07/23 Insertion time: 08:15 Prep/Local: 1% lidocaine (chloroprep) Interspace: L3-4 Patient position: sitting Needle: 18 gauge [place] Loss of resistance with: saline CRIS at (cm): 6 Catheter placed at SKIN (cm): 11 Initial Medications TEST DOSE time: 08:19 Infusion INFUSION: 0.125% bupivacaine Initial rate (mL/hr): 9 Post-procedure Anesthesia date START: 10/07/23 Anesthesia time START: 08:00
--- NOTE | 2023-10-07 09:18 | PM.AN.REGBLK ---
Regional Block Pre-procedure Labs: Hct 34.1 % (36-46) L 10/06/23 12:05 Plt Count 195 X10^3/uL (150-400) 10/06/23 12:05 Medications: Current Medications Generic Name Dose Route Start Last Admin Trade Name Freq PRN Reason Stop Dose Admin Albuterol 2.5 mg 10/07/23 11:00 Albuterol 2.5 Mg/3 Ml Neb (Adult) INH RTQ4HR ROSETTA Carboprost Tromethamine 250 mcg 10/06/23 13:21 Carboprost 250 Mcg/Ml Ampul IM Q90M PRN Bleeding Duloxetine HCl 30 mg 10/07/23 09:00 10/06/23 14:52 Duloxetine 30 Mg Capsule PO 30 mg DAILY ROSETTA Administration Fentanyl 50 mcg 10/06/23 13:21 10/07/23 06:53 Fentanyl 100 Mcg/2 Ml Inj IV 50 mcg Q1H PRN Administration Pain, Moderate (4-6) Oxytocin/Lactated Ringer's 30 unit in 500 mls @ 200 mls/hr 10/06/23 13:21 Oxytocin Premix IV CONT PRN Bleeding Protocol Tranexamic Acid 1,000 mg/ 100 mls @ 200 mls/hr 10/06/23 13:21 Sodium Chloride IV NOW PRN Bleeding Oxytocin/Lactated Ringer's 30 unit in 500 mls @ 2 mls/hr 10/06/23 13:30 10/06/23 13:39 Oxytocin Premix IV 2 milliunit/min TITRATE ROSETTA 2 mls/hr Administration Protocol 2 MILLIUNIT/MIN Lactated Ringer's 1,000 mls @ 100 mls/hr 10/06/23 13:30 10/07/23 08:46 Lactated Ringers IV 100 mls/hr CONT ROSETTA Administration Labetalol HCl 200 mg 10/06/23 21:00 10/06/23 20:48 Labetalol 100 Mg Tablet PO 200 mg BID ROSETTA Administration Lidocaine HCl 20 ml 10/06/23 13:21 Lidocaine 1% 20 Ml INJ INTRA-OP PRN Post Delivery Misoprostol 800 mcg 10/06/23 13:21 Misoprostol 200 Mcg Tablet MI NOW PRN Bleeding Misoprostol 400 mcg 10/06/23 13:21 Misoprostol 200 Mcg Tablet SL NOW PRN Bleeding Montelukast Sodium 10 mg 10/07/23 09:00 Montelukast 10 Mg Tablet PO DAILY ROSETTA Naloxone HCl 0.2 mg 10/06/23 13:21 Naloxone 0.4 Mg/Ml Vial IV Q2MIN PRN Opiate Reversal Oxytocin 10 unit 10/06/23 13:21 Oxytocin 10 Unit/Ml Vial IM NOW PRN Bleeding Allergies: Allergies Allergy/AdvReac Type Severity Reaction Status Date / Time No Known Drug Allergies Allergy Verified 09/25/23 10:06 --: Right sided block. Catheter pulled back 10 10 cm at the skin at 0915. Discussed with patient if this does not fix the problem the catheter will need to be replaced Procedure Catheter placed at SKIN (cm): 10
--- NOTE | 2023-10-07 13:20 | PM.OBPRVD ---
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 She received cervidil for IOL, followed by a merino catheter that then fell out. The patient progressed through the 1st stage over 4 hours. AROM occured at 10:32 with blood tinged fluid. Pain was controlled with an epidural. The patient progressed through the 2nd stage over 37 minutes and delivered a viable female with APGARs 8/9 at 12:03 via without complications. The cord was cut and clamped after it stopped pulsating. The placenta delivered with gentle cord traction, and appeared complete. The perineum and vagina were inspected with 2nd degree perineal laceration with 2-O Vicryl. Needle and sponge counts were correct.? The vagina was inspected and no items were left in situ. Lara was doing well with her and her , Bill, at bedside. PREPROCEDURE DIAGNOSIS: Intrauterine at 38w2d Chronic HTN Placental [place] Anxiety/Depression Fibromyalgia GBS negative RH positive POSTPROCEDURE DIAGNOSIS: Intrauterine at 38w2d, delivered Same as preprocedure [place] Baby 1: Infant gender: Female Presentation: vertex Position: Right Occiput Transverse Placenta delivery description: Spontaneous Cord Vessel Description: 3 Vessels score (1 min): 8 score (5 min): 9 weight: 7 lb 11.671 oz Plan for aftercare: Routine care
--- NOTE | 2023-10-07 13:56 | P.PCN_ITS ---
<Statement entered by Adriane Silva, INSURANCE OPERATIONS REP - 10/07/23 14:14> 1st epidural pulled due to one sided block. Right side numb and left with sensation. Epidural replaced. in room at 1004, local at 1010, Catheter placed at 1014 and test dose at 1015. Test dose negative. Catheter connected to infusion. Regional Block Pre-procedure ASA Class: II Labs: Hct 34.1 % (36-46) L 10/06/23 12:05 Plt Count 195 X10^3/uL (150-400) 10/06/23 12:05 Medications: Current Medications Generic Name Dose Route Start Last Admin Trade Name Freq PRN Reason Stop Dose Admin Acetaminophen 650 mg 10/07/23 12:57 Acetaminophen 325 Mg Tablet PO Q6HR PRN Pain, Mild (1-3) Benzocaine 1 spray 10/07/23 12:57 Dermoplast [place] 20% 60 Ml TOP Q1HR PRN perineal pain Docusate Sodium 100 mg 10/08/23 09:00 Docusate 100 Mg Capsule PO DAILY [facility] Duloxetine HCl 30 mg 10/07/23 09:00 10/06/23 14:52 Duloxetine 30 Mg Capsule PO 30 mg DAILY [facility] Administration Emollient Ointment 1 applic 10/07/23 12:57 Lanolin Oint 7 Gm TOP PRN PRN Tenderness Oxytocin/Lactated Ringer's 30 unit in 500 mls @ 200 mls/hr 10/07/23 12:57 Oxytocin Premix IV CONT PRN Bleeding Protocol Tranexamic Acid 1,000 mg/ 100 mls @ 200 mls/hr 10/07/23 12:57 Sodium Chloride IV NOW PRN Bleeding Ibuprofen 600 mg 10/07/23 12:57 Ibuprofen 600 Mg Tablet PO Q6HR PRN Pain, Mild (1-3) Misoprostol 400 mcg 10/07/23 12:57 Misoprostol 200 Mcg Tablet SL NOW PRN Bleeding Misoprostol 1,000 mcg 10/07/23 12:57 Misoprostol 200 Mcg Tablet AK NOW PRN Bleeding Misoprostol 800 mcg 10/07/23 12:57 Misoprostol 200 Mcg Tablet AK NOW PRN Bleeding Montelukast Sodium 10 mg 10/07/23 09:00 Montelukast 10 Mg Tablet PO DAILY [facility] Naloxone HCl 0.2 mg 10/07/23 12:57 Naloxone 0.4 Mg/Ml Vial IV Q2MIN PRN Opiate Reversal Oxycodone HCl 5 mg 10/07/23 12:57 Oxycodone Ir 5 Mg Tablet PO Q4HR PRN Pain, Moderate (4-6) Oxytocin 10 unit 10/07/23 12:57 Oxytocin 10 Unit/Ml Vial IM NOW PRN Bleeding Vit/Calcium/Iron/Folic Ac 1 tab 10/08/23 09:00 Vit,Calc/Iron/Folic 1 Tablet PO DAILY ROSETTA Rho Immune Globulin 1,500 unit 10/07/23 12:57 Rho(D) Immune Globulin 1,500 Unit Syringe IM NOW PRN Mom Rh neg, Rh pos Allergies: Allergies Allergy/AdvReac Type Severity Reaction Status Date / Time No Known Drug Allergies Allergy Verified 09/25/23 10:06 --: !st epidural catheter pulled due to one sided block. Attempted pulling catheter back but no difference in block. Discussed replacing catheter with patient. Pt agrees to proceed with new epidural. In room for replacement at 1004,local at 1010, catheter at 1014, negative test dose at 1015 Procedure Insertion date: 10/07/23 Insertion time: 10:15 Prep/Local: 1% lidocaine (chloroprep) Interspace: L2-3 Patient position: sitting Needle: 18 gauge Hustead Loss of resistance with: saline CRIS at (cm): 6 Catheter placed at SKIN (cm): 10 Catheter in SPACE (cm): 4 Initial Medications TEST DOSE time: 10:15 TEST DOSE: 1.5% lidocaine with epinephrine 1:200k (mL): 3 Infusion INFUSION: 0.125% bupivacaine and with fentanyl 2 mcg/mL Initial rate (mL/hr): 9 Post-procedure Anesthesia date START: 10/07/23 Anesthesia time START: 10:04 Anesthesia date END: 10/07/23 Anesthesia time END: 12:03 Post-procedure Anesthesia Assessment: Yes CV function: HR/BP stable, Yes Resp function: RR/sat/airway adequate, Yes Post-op hydration adequate, Yes Pain control adequate, Yes Nausea & vomiting absent, Yes Temperature > 36 C and Yes Mental status appropriate
[2023-10-07] MEDS: DERMOPLAST SPRAY 20% 60 ML 1 SPRAY TOP (14:28)
[2023-10-07] MEDS: LANOLIN OINT 7 GM 1 APPLIC TOP (14:28)
[2023-10-07] MEDS: MONTELUKAST 10 MG TABLET PO (14:29)
[2023-10-07] MEDS: DULOXETINE 30 MG CAPSULE PO (14:29)
[2023-10-07] MEDS: ACETAMINOPHEN 325 MG TABLET 650 MG PO ×2 (16:47→23:43)
[2023-10-07] MEDS: IBUPROFEN 600 MG TABLET PO ×2 (16:47→23:43)
[2023-10-08] MEDS: ACETAMINOPHEN 325 MG TABLET 650 MG PO ×2 (06:23→12:11)
[2023-10-08] MEDS: IBUPROFEN 600 MG TABLET PO ×2 (06:24→12:11)
[2023-10-08] MEDS: DOCUSATE 100 MG CAPSULE PO (08:29)
[2023-10-08] MEDS: PRENATAL VIT,CALC/IRON/FOLIC 1 TABLET 1 TAB PO (08:29)
--- NOTE | 2023-10-08 11:52 | PM.OBDS.1 ---
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 She received cervidil followed by merino catheter for induction. AROM was performed with blood-tinged fluid present. She progressed to complete and had an of a viable baby girl without complications. A second degree perineal laceration was repaired. , there were no complications. At the time of discharge she was voiding, ambulating, and passing flatus without difficulty. Her lochia was decreasing appropriately. Her pain was well controlled. Her BPs remained in good range off PO Labetalol. She will f/u in 6 weeks for check. She would like permanent sterilization for contraception. Peripartum Data Delivery Method: Natural Vaginal Laceration Description: Perineal - 2nd Degree Episiotomy description: None Procedures: Spontaneous vaginal delivery complications: none [place] 1: Gender: Female Disposition of : home Time Spent with Patient Time attestation: Total time spent providing and/or coordinating discharge services: Objective Labs 10/06/23 12:05 Exam Narrative Exam Narrative: Gen: NAD, sitting comfortably in bed, appears well CV: RRR, no murmurs Resp: clear to auscultation bilaterally Abd: soft, appropriately tender, fundus firm and below the umbilicus, nondistended Ext: no edema Discharge Plan Discharge Plan Patient Disposition: Home Discharge orders & Medications Prescriptions: New acetaminophen 325 mg Tablet 650 mg PO Q6HR PRN (Reason: Pain, Mild (1-3)) Qty: 30 0RF docusate sodium 100 mg Capsule 100 mg PO DAILY Qty: 30 0RF ibuprofen 600 mg Tablet 600 mg PO Q6HR PRN (Reason: Pain, Mild (1-3)) Qty: 30 0RF Continued ondansetron 4 mg tablet,disintegrating 4 mg PO Q8H PRN (Reason: nausea and vomiting) Qty: 20 0RF duloxetine 30 mg capsule,delayed release(DR/EC) 30 mg PO DAILY Qty: 90 2RF montelukast 10 mg tablet 10 mg PO DAILY Qty: 30 2RF albuterol sulfate [ProAir HFA] 90 mcg/actuation HFA aerosol inhaler See Rx Instructions .ROUTE .COMPLEX Qty: 9 11RF Dose Instruction: INHALE 2 PUFFS BY MOUTH EVERY 4 HOURS NEEDED FOR SHORTNESS OF BREATH OR WHEEZING Rx Instructions: INHALE 2 PUFFS BY MOUTH EVERY 4 HOURS NEEDED FOR SHORTNESS OF BREATH OR WHEEZING Flovent HFA 110 mcg/actuation HFA aerosol inhaler 1 puff inhalation BID Qty: 12 1RF acyclovir 400 mg tablet 400 mg PO 5XD Qty: 25 2RF prenat.vits,tobias,[id number] Tablet 1 tab PO DAILY Discontinued sertraline 50 mg tablet 50 mg PO DAILY Qty: 90 0RF labetalol 200 mg tablet 200 mg PO BID Qty: 60 3RF Follow up/Referrals: Marianela Roe MD [Primary Care Provider] - 11/18/23 10:30 am Diet/Activity/Treatments Diet: Diet as Tolerated and Regular Skin/Wound/Dressing Care Report to your healthcare provider any signs of infection, such as:: chills, fever, increased pain and unusual drainage Visit Report/Discharge Packet Instructions: Depression, DI for Labor and Delivery, Vaginal Stand Alone Forms: Discharge: Care, Patient Portal/API, Stroke Signs & Symptoms Discharge Data Primary Care Provider: Marianela Roe Discharges patient from system. Discharge Date/Time: 10/08/23 15:15
== END 2023-10-08 15:15 | disposition home or self-care (01) | DRG 560 ==
PROVIDERS: Admitting Provider Family Medicine; Family Provider Family Medicine; PCP Family Medicine; Referring Provider Family Medicine; Visit Provider Family Medicine
DX: O16.4 Unspecified maternal hypertension, complicating childbirth (principal); O43.893 Other placental disorders, third trimester; O70.1 Second degree perineal laceration during delivery; Z3A.38 38 weeks gestation of pregnancy; Z37.0 Single live birth; O10.913 Unspecified pre-existing hypertension complicating pregnancy, third trimester; O09.293 Supervision of pregnancy with other poor reproductive or obstetric history, third trimester
CPT/HCPCS: 36415; 59050; 59200; 59409; 76819; 76820; 85025; 86850; 86900; 86901; A9270; G0379; J2590; J3010